=== PATIENT | male | born 1950 | race African-American/Black ===

== ENCOUNTER 2016-08-27 09:17 | Inpatient (IN) | payer BC ==
--- NOTE | ~2016-08-27 | EKG ---
PATIENT: MILLI ORTIZ UNIT #: [id number] Ventricular Rate: 110 BPM Atrial Rate: 101 BPM QRS Duration: 86 ms Q-T Interval: 294 ms QTC Calculation(Bezet): 397 ms Calculated R Sparks: -13 degrees Calculated T Sparks: -4 degrees Diagnosis Line: Atrial fibrillation with rapid ventricular Diagnosis Line: response Diagnosis Line: Minimal voltage criteria for LVH, may be normal Diagnosis Line: variant Diagnosis Line: Nonspecific T wave abnormality Diagnosis Line: Abnormal ECG Diagnosis Line: When compared with ECG of 10-AUG-2016 22:01, Diagnosis Line: Questionable change in QRS axis Diagnosis Line: Nonspecific T wave abnormality has replaced Diagnosis Line: inverted T waves in Lateral leads Diagnosis Line: Confirmed by NASIR RAI MD ([id number]) on Diagnosis Line: 08/28/2016 10:40:05 PM INTERPRETING MD: BC
--- NOTE | ~2016-08-27 | HP ---
Unit #: [id number] #: [id number] Patient: MILLI ORTIZ JR [id number] [address] [place], [place] [address] [id number] E MR#: [id number] NAME: MILLI ORTIZ JR ROOM: Age: 66 Sex: M Admission Date: 08/27/2016 : 1950 Attending Physician: Juan Cardenas M.D. Referring Physician: No Primary Care Physician Primary Care Physician: No Primary Care Physician HISTORY AND PHYSICAL HISTORY OF PRESENT ILLNESS This is a 66-year-old white male who is known to Cardiology that has a history of nonischemic cardiomyopathy where he underwent AICD placement in 2013. He had a cardiac catheterization in 2013 which shows angiographically normal coronaries. His ejection fraction at that time was 10 to 15%. He is known to have paroxysmal atrial fibrillation and is on anticoagulation with Eliquis. The patient presents to the emergency room after AICD discharge, which he believes was four times. He states that he has been doing well without any symptoms of dyspnea, palpitations or dizziness. He has no complaint of chest pain. He has been out of his medications for at least three to four days. He has been consistently taking his Eliquis. He came to the emergency room for evaluation where he was found to be in atrial fibrillation with rapid ventricular response. He was treated with a Cardizem bolus. He has been hypertensive with blood pressure 160/120 mmHg. He is hypokalemic with potassium level of 3.1. Magnesium level low at 1.6. BNP 254. He has not followed up with Cardiology for more than a year. He has not his device checked. PAST MEDICAL HISTORY 1. Cardiac catheterization, 10/18/2013, showed angiographically normal coronaries. 2. 2D echocardiogram, 10/15/2013, showed an ejection fraction of 10 to 15% with moderate left atrial enlargement, mild to moderate mitral regurgitation, moderate to severe tricuspid regurgitation, and right ventricular systolic pressure of 40 to 50 mmHg. 3. Chronic systolic heart failure. 4. Nonischemic cardiomyopathy status post [employer] AICD, 11/29/2013. 5. Permanent atrial fibrillation on anticoagulation with Eliquis. 6. Hypertension. 7. Hypothyroidism. 8. Chronic kidney disease. 9. BPH. 10. ETOH abuse. 11. Nonsmoker. 12. Noncompliance. PAST SURGICAL HISTORY AICD implantation. SOCIAL HISTORY The patient works at [employer]. He has never smoked. He continues to drink alcohol most days of the week. He denies illicit drug use. Unit #: [id number] #: [id number] Patient: MILLI ORTIZ JR FAMILY HISTORY Negative for coronary artery disease. MEDICATIONS 1. Carvedilol 25 mg b.i.d. 2. Norvasc 10 mg daily. 3. Eliquis 5 mg b.i.d. 4. Furosemide 40 mg b.i.d. 5. Potassium chloride 20 mEq daily. 6. Lisinopril 30 mg daily. 7. Aspirin 81 mg daily. REVIEW OF SYSTEMS CONSTITUTIONAL: Negative for fever or chills. The patient reports no weight gain or weight loss. HEENT: No headache, hearing or vision changes, difficulty with swallowing. No dizziness. CARDIOVASCULAR: The patient has no symptoms of angina. The patient denies palpitations. No paroxysmal nocturnal dyspnea or orthopnea. The patient denies syncope or near syncope. The patient reports AICD discharge. RESPIRATORY: Negative for dyspnea, cough or hemoptysis. GASTROINTESTINAL: No abdominal pain, nausea or vomiting. No constipation or melena. EXTREMITIES: Positive for left lower extremity edema. PHYSICAL EXAMINATION GENERAL APPEARANCE: This is a pleasant, 66-year-old, middle-aged -[place] male who is in no acute distress. VITAL SIGNS: Blood pressure 160/120. Heart rate 89. Temperature 97.9. BMI 34. NEUROLOGIC: He is awake, alert and oriented without focal weaknesses. NECK: Trachea is midline. No thyromegaly or lymphadenopathy. No jugular venous distention. HEART: S1, S2. Heart sounds are normal. No murmurs. No rubs or clicks. Regular rate and rhythm. LUNGS: Clear to auscultation without rales, rhonchi or wheezes. ABDOMEN: Soft, nontender. Bowel sounds are present. EXTREMITIES: Trace left lower extremity edema. DIAGNOSTIC STUDIES LABORATORY: Glucose 115, BUN 19, creatinine 1.3, sodium 142, potassium 3.1, magnesium 1.6. BNP 254. CK MB 1.3. Troponin less than 0.05. White count 4.4, hemoglobin 14.0, hematocrit 42.5, platelet count 256. IMAGING: Chest x-ray shows no active disease. CARDIOVASCULAR: EKG: Atrial fibrillation with rapid ventricular response rate of 110 beats per minute with left axis deviation. IMPRESSION 1. AICD discharge. 2. Uncontrolled hypertension. 3. Permanent atrial fibrillation with rapid ventricular response. 4. Nonischemic cardiomyopathy. 5. Continue ETOH abuse. 6. Mild obesity. Unit #: [id number] #: [id number] Patient: MILLI ORTIZ JR 7. History of chronic kidney disease. 8. Hypokalemia. PLAN 1. We will control the heart rate with IV beta blockers. 2. Restart on a beta sofie. 3. Continue Eliquis for anticoagulation. 4. We will try Entresto for afterload reduction in a patient with cardiomyopathy. 5. TSH will be checked. 6. Electrolytes will be replaced. 7. Interrogation shows that the patient had eight DC shocks today most likely from atrial fibrillation with rapid ventricular response. 8. Discharge in the a.m. if stable. Dictated by Gokul Hooks A.P.R.N. for Lupe Pena/issa TD: 08/27/2016 13:34 JOB #: [id number] HISTORY AND PHYSICAL X Gokul Hooks APRN HISTORY AND PHYSICAL
--- NOTE | ~2016-08-27 | CR72 ---
[facility] A Service of [facility] & [facility] RADIOLOGY TEXT RESULTS PATIENT: MILLI ORTIZ JR [facility] [birth year] UNIT #: [id number] AGE: [address]: Duane Mari MD SEX: M ORDER DR: [id number] [facility] [address]. [place], [place] [address] [id number] E MR#: [id number] Acc #: [id number] NAME: MILLI ORTIZ JR : 1950 SEX: M STUDY DATE/TIME: 08/27/2016 8:49 [facility]IT: [facility] ROOM: STUDY DESCRIPTION: CR Chest Single View Portable Attending Physician: Juan Cardenas M.D. Referring Physician: Primary Care Physician No Ordering Physician: Juan Cardenas M.D. Primary Care Physician: Primary Care Physician No MEDICAL IMAGING REPORT This report is preliminary unless electronic signature is present EXAM AP portable chest 08/27/2016 HISTORY 66-year-old male in the ED complaining of new onset chest pain today. TECHNIQUE AP portable chest x-ray. FINDINGS No active disease in the chest. Mild cardiomegaly. Pulmonary vascularity is normal. The lungs are expanded and clear. Well-positioned cardiac pacer/AICD. No change since 08/10/2016. IMPRESSION No active disease. No change since 08/10/2016. Dictated by... Khadar Caro M.D. THIS IS AN ELECTRONICALLY VERIFIED REPORT Khadar Caro M.D. at 08/27/2016 3:01 PM SAI/shayla TD: 08/27/2016 12:16 JOB #: [id number] MEDICAL IMAGING REPORT COPY
[~2016-08-27 09:17] MED LIST: ACETAMINOPHEN650 M1 PO; ALDACTONE25 MG PO; AMLODIPINE BESY10 MG PO; ASPIRIN81 M2 PO; BENZONATATE PO; BUMETANIDE1 MG PO; CARVEDILOL25 MG PO; CARVEDILOL6.25 MG PO; CLONIDINE HCL0.1 MG PO; COLCHICINE PO; COREG PO; ELIQUIS5 MG PO; FLOMAX0.4 M1 PO; FUROSEMIDE40 MG PO; K-DUR20 ME1 PO; K-DUR20 ME2 PO; KCL PO; KLOR-CON PO; LASIX PO; LASIX20 MG PO; LEVOTHYROXINE50 MCG PO; LISINOPRIL20 MG PO; LIVALO2 MG PO; LOTREL 10/40 MG1 CAP PO; MULTI-VITAMIN1 EAC1 PO; NAPROSYN500 MG PO; NORVASC10 MG PO; OXYCODONE-ACET1 EACH PO; POTASSIUM CHLO20 ME1 PO; PRINIVIL40 MG PO; TENORETIC 50 TA1 TAB PO; TOPROL XL100 MG PO; VENTOLIN5 MG/ML IH; ZESTRIL30 MG PO; ZESTRIL40 MG PO; ZYLOPRIM PO
[2016-08-27 09:31] LABS: BASOPHIL# 0.1 X10e3 (0-0.3); BASOPHIL% 2.9 % (0-2.5); EOSINOPHIL# 0.4 X10e3 (0-0.7); EOSINOPHIL% 8.4 % (0.0-7.0); HEMATOCRIT 42.5 % (38.0-50.0); LYMPHOCYTE# 1.1 X10e3 (1.0-3.5); LYMPHOCYTE% 24.8 % (17.0-45.0); MEAN CELL VOLUME 87.6 FL (83-96); MEAN CORPUSCULAR HEMOGLOBIN 28.9 PG (28-34); MEAN PLATELET VOLUME 8.7 FL (6.5-11.5); MONOCYTE# 0.4 X10e3 (0-1.0); MONOCYTE% 9.3 % (3.0-12.0); NEUTROPHIL# 2.4 X10e3 (1.5-7.1); NEUTROPHIL% 54.6 % (40-75); PLATELET COUNT 257 X10e3 (140-420); RED BLOOD COUNT 4.85 X10e (3.90-5.60); RED CELL DISTRIBUTION WIDTH 14.4 % (11.0-15.5); WHITE BLOOD COUNT 4.4 X10e3 (4.0-10.5)
[2016-08-27 09:32] LABS: POC - CKMB 1.3 ng/mL (0.0-7.9); POC - TROPONIN <0.05 ng/mL (<=0.05)
[2016-08-27 09:33] LABS: DIFF IND NO
[2016-08-27 09:49] LABS: INR 1.1; PARTIAL THROMBOPLASTIN TIME 26.6 SECONDS (23.5-31.3); PROTHROMBIN TIME (PATIENT) 11.2 SECONDS (9.6-11.5)
[2016-08-27 10:21] LABS: ALKALINE PHOSPHATASE 102 U/L (32-92); ALT (SGPT) 20 U/L (10-40); AST (SGOT) 18 U/L (10-42); BILIRUBIN, DIRECT 0.1 mg/dL (0.0-0.2); BILIRUBIN,INDIRECT 0.4 mg/dL (0.0-0.9); BILIRUBIN,TOTAL 0.5 mg/dL (0.2-2.0); BLOOD UREA NITROGEN 19 mg/dL (9-23); BUN/CREATININE RATIO 14.61; CALCIUM SERUM 8.9 mg/dL (8.4-10.2); CARBON DIOXIDE 28 mmol/L (22-31); CHLORIDE 103 mmol/L (100-111); CREATININE SERUM 1.3 mg/dL (0.6-1.4); GLOM FILT RATE Estimated ABOVE60 mL/min (>60); GLUCOSE FASTING 115 mg/dL (70-110); MAGNESIUM 1.6 mg/dL (1.6-3.0); POTASSIUM 3.1 mmol/L (3.5-5.1); PROTEIN TOTAL SERUM 7.8 g/dL (6.0-8.3); SODIUM 142 mmol/L (135-145)
[2016-08-28 06:14] LABS: BLOOD UREA NITROGEN 16 mg/dL (9-23); BUN/CREATININE RATIO 14.54; CARBON DIOXIDE 28 mmol/L (22-31); CHLORIDE 105 mmol/L (100-111); CREATININE SERUM 1.1 mg/dL (0.6-1.4); GLOM FILT RATE Estimated ABOVE60 mL/min (>60); GLUCOSE FASTING 112 mg/dL (70-110); POTASSIUM 3.3 mmol/L (3.5-5.1); SODIUM 143 mmol/L (135-145)
[2016-08-29 08:30] LABS: BLOOD UREA NITROGEN 25 mg/dL (9-23); BUN/CREATININE RATIO 17.85; CALCIUM SERUM 9.1 mg/dL (8.4-10.2); CARBON DIOXIDE 28 mmol/L (22-31); CHLORIDE 106 mmol/L (100-111); CREATININE SERUM 1.4 mg/dL (0.6-1.4); GLOM FILT RATE Estimated ABOVE60 mL/min (>60); GLUCOSE FASTING 115 mg/dL (70-110); MAGNESIUM 1.9 mg/dL (1.6-3.0); POTASSIUM 4.3 mmol/L (3.5-5.1); SODIUM 143 mmol/L (135-145)
[2016-08-29] MEDS ORDERED: COREG PO (09:49)
[2016-08-29] MEDS ORDERED: ENTRESTO 24 MG1 EACH PO (09:50)
== END 2016-08-29 13:58 | disposition home or self-care (01) | DRG 309 ==
LOC: CED 09:17 → CEDOF 12:25 → C5B 15:12
PROVIDERS: Emergency Medicine; Internal Medicine Cardiovascular Disease; Nurse Practitioner
DX: I49.9 Cardiac arrhythmia, unspecified (principal); I50.22 Chronic systolic (congestive) heart failure; E66.01 Morbid (severe) obesity due to excess calories; I12.9 Hypertensive chronic kidney disease with stage 1 through stage 4 chronic kidney disease, or unspecified chronic kidney disease; I48.2 Chronic atrial fibrillation; F10.10 Alcohol abuse, uncomplicated; N18.9 Chronic kidney disease, unspecified; E87.6 Hypokalemia; E03.9 Hypothyroidism, unspecified; N40.0 Benign prostatic hyperplasia without lower urinary tract symptoms; Z68.34 Body mass index [BMI] 34.0-34.9, adult
CPT/HCPCS: 36415; 71010; 80048; 80076; 80162; 82553; 83735; 83880; 84443; 84484; 85025; 85610; 85730; 93005; 96374; 99285; J0360; J1160; J3475; J3490

== ENCOUNTER 2016-09-12 13:18 | Emergency (ER) | payer BC ==
--- NOTE | ~2016-09-12 | US84 ---
[id number] [facility] [address]. [place], [place] [address] [id number] E MR#: [id number] Acc #: [id number] NAME: MILLI ORTIZ JR : 1950 SEX: M STUDY DATE/TIME: 09/12/2016 13:54 UNIT: [facility] ROOM: STUDY DESCRIPTION: US LE Veins Complete Beck Stdy Attending Physician: Josi Swenson Pa-C Ordering Physician: Josi Swenson Pa-C Primary Care Physician: Primary Care Physician No MEDICAL IMAGING REPORT This report is preliminary unless electronic signature is present EXAM Bilateral lower extremity venous duplex, 09/12/2016 HISTORY Bilateral lower extremity pain and swelling for 3 days, evaluate for deep vein thrombosis. TECHNIQUE Venous ultrasound examination of both lower extremities was performed using grayscale, spectral Doppler and color flow Doppler imaging. FINDINGS The examination is negative. There is no evidence of deep venous thrombus from the groin to the lower calf bilaterally. Visualized greater saphenous veins are also patent. IMPRESSION Negative examination. No evidence of lower extremity deep venous thrombosis. Dictated by... Randal Valdez M.D. THIS IS AN ELECTRONICALLY VERIFIED REPORT Randal Valdez M.D. at 09/13/2016 8:00 AM CHILANGO/cecelia TD: 09/12/2016 21:22 JOB #: [id number] MEDICAL IMAGING REPORT COPY
--- NOTE | ~2016-09-12 | CR170 ---
[facility] A Service of [facility] & [facility] RADIOLOGY TEXT RESULTS PATIENT: MILLI ORTIZ JR LOCATION: [facility] : 54 UNIT #: [id number] AGE: [address]: Josi Swenson SEX: M ORDER DR: [id number] [facility] [address] [facility]. [place], [place] [address] [id number] E MR#: [id number] Acc #: [id number] NAME: MILLI ORTIZ JR : 1950 SEX: M STUDY DATE/TIME: 09/12/2016 14:07 UNIT: [facility] ROOM: STUDY DESCRIPTION: CR Knee 2 Views Rt Attending Physician: Josi Swenson Pa-C Ordering Physician: Josi Swenson Pa-C Primary Care Physician: No Primary Care Physician MEDICAL IMAGING REPORT This report is preliminary unless electronic signature is present EXAM Right knee 2 views 09/12/2016 HISTORY Pain and swelling in knee for 4 days. No known injury. FINDINGS There is suprapatellar soft tissue swelling but no fracture, foreign body or bone destruction. Dictated by... José Miguel Vargas M.D. THIS IS AN ELECTRONICALLY VERIFIED REPORT José Miguel Vargas M.D. at 09/15/2016 3:48 PM JONATHON/darcie TD: 09/12/2016 17:46 JOB #: [id number] MEDICAL IMAGING REPORT COPY
--- NOTE | ~2016-09-12 | CR20 ---
[facility] A Service of [facility] & [facility] RADIOLOGY TEXT RESULTS PATIENT: MILLI ORTIZ JR LOCATION: [facility] : 54 UNIT #: [id number] AGE: [address]: Josi Swenson SEX: M ORDER DR: [id number] [facility] [address]. [place], [place] [address] [id number] E MR#: [id number] Acc #: [id number] NAME: MILLI ORTIZ JR : 1950 SEX: M STUDY DATE/TIME: 09/12/2016 1407 UNIT: [facility] ROOM: STUDY DESCRIPTION: CR Ankle Min 3 Views Lt Attending Physician: Josi Swenson Pa-C Ordering Physician: Josi Swenson Pa-C Primary Care Physician: No Primary Care Physician MEDICAL IMAGING REPORT This report is preliminary unless electronic signature is present EXAM Left ankle 3 views 09/12/2016 1407 hours HISTORY 66-year-old man with 4-day history of ankle pain and swelling. Pain in knee. No known injury. COMPARISON None. FINDINGS AP, lateral and oblique views demonstrate diffuse soft tissue swelling and subcutaneous edema over the lower leg and ankle. There is no fracture, dislocation or significant degenerative change. There is a very small plantar calcaneal spur. IMPRESSION Diffuse subcutaneous edema and soft tissue swelling without underlying bone or joint abnormality. No fracture. Dictated by... Elizabeth Null M.D. THIS IS AN ELECTRONICALLY VERIFIED REPORT Elizabeth Null M.D. at 09/13/2016 9:25 AM Anahy TD: 09/12/2016 16:36 JOB #: [id number] MEDICAL IMAGING REPORT COPY
[~2016-09-12 13:18] MED LIST changes: +ENTRESTO 24 MG1 EACH PO
== END 2016-09-12 16:09 | disposition home or self-care (01) ==
LOC: CFTX 13:18
DX: M25.561 Pain in right knee (principal); M79.672 Pain in left foot; I11.0 Hypertensive heart disease with heart failure; I50.9 Heart failure, unspecified
CPT/HCPCS: 73560; 73610; 93970; 99284

== ENCOUNTER 2016-11-25 10:03 | Inpatient (IN) | payer BC ==
--- NOTE | ~2016-11-25 | CR72 ---
[facility] A Service of [facility] & [facility] RADIOLOGY TEXT RESULTS PATIENT: MILLI ORTIZ JR LOCATION: [address] : [birth year] UNIT #: [id number] AGE: [address]: Chari Duarte MD SEX: M ORDER DR: [id number] [facility] [address] [place], [place] [address] [id number] I MR#: [id number] Acc #: [id number] NAME: MILLI ORTIZ : 1950 SEX: M STUDY DATE/TIME: 12/03/2016 6:30 [facility]: [facility] STUDY DESCRIPTION: CR Chest Single View Portable Attending Physician: Chari Duarte M.D. Ordering Physician: Chari Duarte M.D. MEDICAL IMAGING REPORT This report is preliminary unless electronic signature is present EXAM Portable chest HISTORY Shortness of air. Low oxygen saturation today. COMPARISON STUDIES 12/02. FINDINGS Today's portable view of the chest shows that the central venous catheter and pacemaker are in good position. The heart size and vascularity are normal. There is mild left lower lobe atelectasis. Dictated by... Scott Sorto M.D. THIS IS AN ELECTRONICALLY VERIFIED REPORT Scott Sorto M.D. at 12/04/2016 7:02 AM FEL/pcl TD: 12/03/2016 14:57 JOB #: [id number] MEDICAL IMAGING REPORT Page 1 of 1 COPY
--- NOTE | ~2016-11-25 | HP ---
Unit #: [id number] #: [id number] Patient: MILLI ORTIZ JR [id number] [facility] [address]. [place], [place] [address] [id number] E MR#: [id number] NAME: MILLI ORTIZ ROOM: Age: 66 Sex: M Admission Date: 11/25/2016 : 1950 Attending Physician: Bushra Skinner M.D. Primary Care Physician: Monica Lee Aprn HISTORY AND PHYSICAL CHIEF COMPLAINT Left arm is swollen. HISTORY OF PRESENT ILLNESS The patient is a 66-year-old male with a past medical history of paroxysmal atrial fibrillation, chronic anticoagulation with Eliquis, hypertension, congestive heart failure, valvular heart disease, chronic kidney disease, BPH, hypothyroidism and alcohol abuse. He presented to the emergency department for evaluation of the above. The patient states that he was in his usual state of health until the morning of admission, when he awoke with his left upper extremity being swollen. He states that it is somewhat painful with movement. He denies any similar problem. He denies any fever. No chest pain. No difficulty breathing. No cough or cold symptoms. No bowel or bladder problems. In the emergency department a left upper extremity venous Doppler was done and showed occlusive DVT involving the left subclavian and axillary veins. He is being admitted to [facility] for evaluation and further treatment. PAST MEDICAL HISTORY 1. Admission to [facility] 08/27/2016 for AICD discharge and atrial fibrillation with rapid ventricular response. 2. Congestive heart failure. Followed by Dr. Mari. The patient had an echocardiogram 10/15/2013 that showed an ejection fraction of 10%-15%, with moderate left atrial enlargement, mild to moderate mitral regurgitation, moderate to severe tricuspid regurgitation, right ventricular systolic pressure of 40-50 mmHg. He is status post AICD placement. 3. Paroxysmal atrial fibrillation on chronic anticoagulation with Eliquis. 4. Valvular heart disease with echocardiogram results as noted above. 5. Hypertension. 6. Hypothyroidism. 7. Chronic kidney disease. The patient has seen Dr. Albarran in the past. 8. BPH. PAST SURGICAL HISTORY 1. Cardiac catheterization 10/18/2013 showed angiographically normal coronary arteries. 2. AICD placement. SOCIAL HISTORY Unit #: [id number] #: [id number] Patient: MILLI ORTIZ JR The patient works at [employer]. There is no tobacco use. He has a history of heavy alcohol use, but states that he has cut back considerably with his last drink being about a week ago, consisting of one to two beers. He denies tobacco or illicit drug use. FAMILY HISTORY Notable for there being no family history of coronary artery disease nor blood clots. ALLERGIES No known drug allergies. HOME MEDICATIONS 1. Potassium 20 mEq b.i.d. 2. Coreg 25 mg b.i.d. 3. Prinivil 40 mg daily. 4. Aspirin 81 mg daily. 5. Eliquis 5 mg b.i.d. 6. Furosemide 40 mg b.i.d. 7. Amlodipine 10 mg daily. 8. Entresto 24/26 mg b.i.d. REVIEW OF SYSTEMS A complete review of systems is negative except as indicated in the history of present illness. PHYSICAL EXAMINATION GENERAL: The patient is an male who is very pleasant, in no acute distress. VITALS: Temperature 98.6, pulse 69, respiratory rate 17, blood pressure 107/82, oxygen saturation 100% on room air. HEENT: The head is atraumatic. Mucous membranes are moist. NECK: Supple. Trachea midline. LUNGS: Relatively clear to auscultation bilaterally with no increased work of breathing. HEART: Irregular. ABDOMEN: Soft and nontender with bowel sounds present in all four quadrants. EXTREMITIES: The left upper extremity is edematous. He does have decreased range of motion secondary to pain. He has a 2+ radial pulse. Sensation is intact. There is no pedal edema. NEUROLOGIC: The patient is awake and alert. He follows commands. PSYCHIATRIC: Mood and affect are normal. The patient is cooperative. SKIN: Skin of examined areas is warm and dry. DIAGNOSTIC STUDIES IMAGING: Left upper extremity venous Doppler shows an occlusive DVT involving the left subclavian and axillary veins. INR is 1.4. CMP is notable for AST 64 and ALT 83. Alkaline phosphatase 381. Albumin 3.3. CBC notable for white blood cell count of 19.6. Hemoglobin 11.2, hematocrit 35.6. ASSESSMENT The patient is a 66-year-old male with 1. Left upper extremity DVT. The patient is currently on Eliquis for paroxysmal atrial fibrillation. He has been taking it as prescribed, with the last dose being this morning around 7 o'clock. Unit #: [id number] #: [id number] Patient: MILLI ORTIZ JR 2. Chronic anticoagulation with Eliquis. 3. Paroxysmal atrial fibrillation. Followed by Dr. Mari. 4. Hypertension. 5. Leukocytosis with no obvious source of infection. 6. Transaminitis with AST and ALT of 64 and 83 respectively. Alkaline phosphatase is 381. LFTs have previously been normal. 7. Congestive heart failure with an ejection fraction of 10%-15% noted on echocardiogram 10/15/2013. 8. Valvular heart disease with echocardiogram results as noted above. 9. Chronic kidney disease. The patient has seen Dr. Albarran in the past. 10. BPH. 11. Hypothyroidism. 12. History of heavy alcohol use. The patient states that he has cut back considerably with his last drink being a week ago, consisting of 1-2 beers. PLAN 1. Admit to intermediate level. 2. 2 g sodium 1800 cc fluid restricted heart healthy diet. 3. High intensity heparin drip per protocol for DVT, to start at 5 p.m. with no initial bolus due to the patient taking Eliquis this morning. 4. Consult Dr. Escalona regarding DVT on Eliquis. 5. Supplemental oxygen. 6. Check EKG and cardiac enzymes. 7. TSH. 8. Folic acid, thiamine and multivitamin. 9. CIWA scoring. 10. Right upper quadrant ultrasound, hepatitis panel for further evaluation of transaminitis. 11. Blood cultures, urinalysis and chest x-ray for further evaluation of leukocytosis. 12. Additional workup and consultants based on the above. CODE STATUS The patient is a full code. Dictated by Fabiana Sheffield M.D. Sree TD: 11/25/2016 13:34 JOB #: [id number] HISTORY AND PHYSICAL Page 1 of 1 X Fabiana Sheffield MD X HISTORY AND PHYSICAL
--- NOTE | ~2016-11-25 | EKG ---
PATIENT: MILLI ORTIZ UNIT #: [id number] Ventricular Rate: 87 BPM Atrial Rate: 267 BPM QRS Duration: 90 ms Q-T Interval: 360 ms QTC Calculation(Bezet): 433 ms Calculated R Oxford: -2 degrees Calculated T Oxford: -32 degrees Diagnosis Line: Atrial fibrillation Diagnosis Line: Nonspecific T wave abnormality Diagnosis Line: Abnormal ECG Diagnosis Line: When compared with ECG of 27-AUG-2016 08:23, Diagnosis Line: No significant change was found Diagnosis Line: Confirmed by AKASH JONES MD ([id number]) on Diagnosis Line: 11/29/2016 3:11:38 PM INTERPRETING MD: KAREN KOTHARI
--- NOTE | ~2016-11-25 | US6 ---
[facility] A Service [facility] RADIOLOGY TEXT RESULTS PATIENT: MILLI ORTIZ JR LOCATION: [place] [address] : [birth year] UNIT #: [id number] AGE: [address]: Fabiana Sheffield MD SEX: M ORDER DR: [id number] [facility] [address] [facility] [place] [facility]. [place], [place] [address] [id number] I MR#: [id number] Acc #: [id number] NAME: MILLI ORTIZ JR : 1950 SEX: M STUDY DATE/TIME: 11/25/2016 14:03 UNIT: [facility] ROOM: [id number] STUDY DESCRIPTION: US Abdominal Limited Attending Physician: Fabiana Sheffield M.D. Ordering Physician: Fabiana Sheffield M.D. Primary Care Physician: Monica Lee R.N. MEDICAL IMAGING REPORT This report is preliminary unless electronic signature is present EXAM Right upper quadrant ultrasound HISTORY Elevated liver enzymes. FINDINGS Ultrasound examination of the upper quadrant demonstrates diffusely heterogeneous hepatic parenchymal echotexture, with multiple hypoechoic rounded and ill-defined masses throughout the liver. CT abdomen with IV contrast is recommended. Gallbladder is normal. No gallstones or gallbladder distension. No biliary dilatation. The common bile duct measures 6 mm. Survey of the right kidney is normal. No right renal mass or hydronephrosis. The pancreas is only partly visualized in the body and the head and tail are incompletely visualized. IMPRESSION Diffusely heterogeneous hepatic parenchymal echotexture with multiple hypoechoic round and ill-defined hepatic masses. These raise suspicion of hepatic metastatic disease. Recommend further evaluation with CT abdomen with IV contrast. Dictated by... Emerson Mg M.D. THIS IS AN ELECTRONICALLY VERIFIED REPORT Emerson Mg M.D. at 11/25/2016 10:38 PM SANTIAGO/darcie TD: 11/25/2016 17:34 JOB #: [id number] MEDICAL IMAGING REPORT [facility] A Service [facility] RADIOLOGY TEXT RESULTS PATIENT: MILLI ORTIZ JR LOCATION: [facility] 450-01 : [birth year] UNIT #: [id number] AGE: [address]: Fabiana Sheffield MD SEX: M ORDER DR: Page 1 of 1 COPY
--- NOTE | ~2016-11-25 | CO ---
Unit #: [id number] #: [id number] Patient: MILLI ORTIZ JR [id number] [address] [place], [place] [address] [id number] I MR#: [id number] NAME: MILLI ORTIZ JR ROOM: 558 Age: 66 Sex: M Admission Date: 11/25/2016 : 1950 Attending Physician: Chari Duarte M.D. Primary Care Physician: Monica Lee Consultation Date: 11/29/2016 CONSULTATION REPORT CHIEF COMPLAINT Colon mass. HISTORY OF PRESENT ILLNESS This is a 66-year-old -Irish gentleman who we were asked to see for colon mass and multiple liver masses. He came into the hospital for some left upper extremity swelling and was also having some mild abdominal pain that started approximately a week ago. He says it is worse at night. He denies any nausea, vomiting or change in bowel habits. He has not undergone prior endoscopy. PAST MEDICAL HISTORY Significant for: 1. Atrial fibrillation. 2. Hypertension. 3. Valve disease. 4. Chronic kidney disease. 5. BPH. 6. Hypothyroidism. PAST SURGICAL HISTORY He has had an AICD placed. He has had no abdominal surgeries. MEDICATIONS Please see Med Rec list. He was taking Eliquis. FAMILY HISTORY Negative for cancer. SOCIAL HISTORY Negative for tobacco use. He has a history of heavy alcohol use and recently stopped a week ago. REVIEW OF SYSTEMS Negative for jaundice, weight loss or change in bowel habits. He denies any current shortness of air or chest pain. Otherwise as above. PHYSICAL EXAMINATION VITAL SIGNS: Temperature is 99.5, heart rate is 103, respiratory rate is 18, blood pressure is 133/67. His BMI is 30. GENERAL: He is in no acute distress. HEENT: Pupils are equal, reactive to light and accommodation. His extraocular muscles are intact. NECK: Without masses or bruits. Unit #: [id number] #: [id number] Patient: MILLI ORTIZ JR LUNGS: Good breath sounds bilaterally with equal air exchange. CARDIAC: Regular rate and rhythm without murmur. ABDOMEN: Soft, nondistended and nontender with no organomegaly. EXTREMITIES: Without edema or cyanosis. NEUROLOGICAL: He is alert and oriented. There are no focal deficits. DIAGNOSTIC STUDIES LABORATORY: Albumin is 2.8. CEA level is 86. Alkaline phos. is 362, white count is 22,000, hemoglobin 10.7, platelet count 220. IMAGING: CT scan shows numerous hepatic lesions, all measuring approximately 3 to 4 cm in diameter. This is consistent with metastatic disease. He also is noted to have colonic thickening of the transverse colon suspicious for primary cancer. IMPRESSION This is a 66-year-old -Irish gentleman who has some colonic thickening and multiple hepatic masses concerning for metastatic colon cancer. He underwent percutaneous liver biopsy today and certainly needs to undergo colonoscopy. Will go ahead and prep out his bowel today and hold his heparin drip at midnight and get him set up for colonoscopy tomorrow. Dictated by... Chauncey Miller III, M.D. VCL/matthew TD: 11/30/2016 07:34 JOB #: [id number] CONSULTATION REPORT Page 1 of 1 X Chauncey Miller III, MD CONSULTATION REPORT
--- NOTE | ~2016-11-25 | DS ---
Unit #: [id number] #: [id number] Patient: MILLI ORTIZ JR [id number] [facility]. [address] [address] [id number] I MR#: [id number] NAME: MILLI ORTIZ JR ROOM: 312 Age: 66 Sex: M Admission Date: 11/25/2016 : 1950 Discharge Date: 12/13/2016 Attending Physician: Chari Duarte M.D. Primary Care Physician: Monica Lee Aprn DISCHARGE SUMMARY ADMISSION DIAGNOSIS Left arm swelling. DISCHARGE DIAGNOSES 1. Metastatic cholangiocarcinoma with colon mass. 2. Colon mass, status post hemicolectomy. 3. Acute kidney injury. 4. Left upper extremity DVT. 5. Leukocytosis. 6. Congestive heart failure. 7. Paroxysmal atrial fibrillation. 8. Anemia. 9. History of alcohol abuse. 10. History of chronic systolic congestive heart failure, ejection fraction 10%-15%. 11. Valvular heart disease. 12. Hyperthyroidism. 13. BPH. 14. Valvular heart disease with moderate to severe tricuspid regurgitation and mild to moderate mitral regurgitation. CONSULTANTS Dr. Vega in pulmonary consultation. Dr. Keith in surgical consultation Dr. aMri in cardiac consultation Dr. Albarran in renal consultation. PROCEDURES PERFORMED 1. The patient had a colonoscopy done, which revealed obstructing colon mass at the transverse colon. 2. Exploratory laparotomy done with left colectomy and anastomosis. DIAGNOSTIC DATA LABORATORY: Today the patient's creatinine is 3.4, sodium 132, potassium 4.7. White blood cell count 25.2, hemoglobin 7.2, platelet count 277. HOSPITAL COURSE The patient is a 66-year-old male who was admitted to the hospital with left upper extremity swelling. Details are as per admission history and physical. The patient was diagnosed with liver masses and had a liver biopsy done, which was positive for malignancy. Also a colonoscopy was done, which revealed transverse colon mass. The patient underwent partial colectomy with anastomosis. The patient's condition deteriorated and he developed acute respiratory failure and was transferred to the intensive care unit. The patient was seen by Dr. Vega in consultation. Unit #: [id number] #: [id number] Patient: MILLI ORTIZ JR The patient also developed acute kidney injury and required hemodialysis. The patient also developed atrial fibrillation and cardiology saw the patient in consultation. The patient's overall condition gradually improved, but oncology recommended Hospice care because of the patient's advanced cancer. The patient continued to have leukocytosis, but it is attributed to cancer because the patient is not having any fever. The patient was seen by Hospice who discussed with the patient's family and it was decided to have comfort care only. The patient will be transferred to Hospice inpatient unit. Please make note that I have discussed the patient's condition multiple times with the patient's son Ladan and the patient's daughter Osiris, the patient's mother and girlfriend and all also with the patient. They od not want any aggressive care. The patient will be transferred to Hospice inpatient unit. DISPOSITION Hospice inpatient unit. Please feel free to call if there are any questions The plan has been discussed with Hospice as well. Dictated by... Lupe Gabriel TD: 12/14/2016 14:05 JOB #: [id number] DISCHARGE SUMMARY Page 1 of 1 X Chari Duarte MD X DISCHARGE SUMMARY
--- NOTE | ~2016-11-25 | A ---
[facility] Nutrition Therapy DATE: 12/05/16 Patient: MILLI ORTIZJR Physician: NEIL Address: [address] [place] [address] Room/Bed: [address], Zip: [place] [address] Admit Date: 11/25/16 Date of : [birth year] Height: 6 0 Weight: 211 95.8 NUTRITIONAL ASSESSMENT: REASON: LOS ASSESSMENT PT IS 66 Y.O. MALE ADMITTED FOR LUE DVT, STAGE IV COLON CA W/METS TO LIVER AND LUNG, YG PMH: HTN, AFIB, CHF, ETOH ABUSE, HYPOTHYROIDISM Anthropometrics: 6'0", WT: 220# (PER PT) (100 KG), BMI: 29.8 Labs: GLU: 131, BUN: 57, CREAT: 3.7, CA+:7.5, ALB: 2.6, AST: 65, ALT: 121, PHOS: 6.3, GFR: 18.9, NA+:133 Meds: ZOFRAN, PHENERGAN, PROTONIX, NACL I/O & Bowel function: 1788/530 Skin Integrity: NO KNOWN SKIN ISSUES EDEMA: LUE 2+ EDEMA; BUE TRACE EDEMA Assessment: CHART REVIEWED AND EVENTS NOTED. PT SEEN FOR LENGTH OF STAY ASSESSMENT. PT REPORTS FAIR/GOOD PO INTAKE AND APPETITE, NOTING NO C/O N/V/D. PER IPM [place], PT ATE ~100% CLEAR LIQUID DIET TRAYS AT THIS TIME (ONLY 6 MEALS RECORDED). PT ON FULL LIQUID DIET. OF NOTE, PLANS IN PLACE FOR HD AND PT IS S/P POD #4 (L) COLECTOMY. PT REPORTS SOME WEIGHT LOSS BUT UNABLE TO IDENTIFY AMOUNT OF WEIGHT LOSS. THIS RD ENCOURAGED SLOW GRADUAL PO INTAKE + SUPPLEMENT INTAKE, PT AGREED TO NEPRO SHAKES BID, RD TO ORDER. RD TO FOLLOW. SEE RECOMMENDATIONS BELOW. Dx: ALTERED NUTRIENT NEEDS R/T CURRENT CONDITION AEB PT ON FULL LIQUID DIET. Intervention: 1. FULL LIQUID DIET 2. NEPRO SHAKES BID Monitoring, Evaluation and Goals: 1. ORAL INTAKE; CONSUME >50% OF MEALS AND SUPPLEMENTS W/NO C/O N/V/D 2. WEIGHTS; PROMOTE WEIGHT MAINTENANCE 3. LABS; WNL: K+, PHOS, GLU 4. GI; PROMOTE REGULAR GI FUNCTION MONITOR: -DIET ADVANCEMENT -PO INTAKE/APPETITE -WEIGHTS [facility] Nutrition Therapy DATE: 12/05/16 Patient: MILLI ORTIZ JR Physician: NEIL Address: [address] [place] [address] Room/Bed: [address], Zip: [place] [address] Admit Date: 11/25/16 Date of : [birth year] Height: 6 0 Weight: 211 95.8 -SUPPLEMENT INTAKE Recommendations: 1. PLEASE ORDER BUTTER PECAN NEPRO SHAKES BID W/MEALS 2. ONCE MEDICALLY FEASIBLE, ADVANCE DIET TOLERATED TO HEALTHY HEART 2' PMH 3. ENCOURAGE ADEQUATE PO INTAKE RD WILL F/U PER PROTOCOL PT IS MILD/MODERATELY COMPROMISED Respectfully, JASON VARGAS MS, RD, LD [employer] [facility] Nutrition[facility] Services [facility] cc: client file
--- NOTE | ~2016-11-25 | OR ---
Unit #: [id number] #: [id number] Patient: MILLI ORTIZ JR [id number] [address] [address] [id number] I MR#: [id number] NAME: MILLI ORTIZ ROOM: [facility] Date of Procedure: 12/02/2016 Admission Date: 11/25/2016 Surgeon: Ang Choi M.D. : 1950 Attending Physician: Chari Duarte M.D. Primary Care Physician: Monica Lee Aprn PROCEDURE OPERATIVE NOTE PREOPERATIVE DIAGNOSIS Colon cancer and congestive heart failure with hyperkalemia. PROCEDURE PERFORMED Right internal jugular hemodialysis catheter placement with ultrasound guidance. INDICATION FOR PROCEDURE Hyperkalemia. Critical. COMPLICATIONS None. PROCEDURE An informed consent was obtained from the patient after explaining the benefits and risks of this procedure. The patient's right neck was cleaned and prepped with chlorhexidine then a body drape was applied. When with the ultrasound guidance a needle was inserted until blood flow was obtained, then a guidewire was inserted and the needle was removed. A scalpel was used to create a cut in the skin and then a dilator to clear the tract for the catheter which was inserted over the guidewire and the guidewire was removed. The catheter was sutured in place and flushed appropriately. A Biopatch and clean dressing were applied and a STAT chest x-ray is pending at the time of dictation. Dictated by... Ang Choi M.D. EA/kalpana TD: 12/03/2016 06:44 JOB #: [id number] Unit #: [id number] #: [id number] Patient: MILLI ORTIZ JR PROCEDURE OPERATIVE NOTE Page 1 of 1 X ANG LONG MD X PROCEDURE OPERATIVE NOTE
--- NOTE | ~2016-11-25 | CO ---
Unit #: [id number] #: [id number] Patient: MILLI ORTIZ JR [id number] [facility]. [address] [place], [place] [address] [id number] I MR#: [id number] NAME: MILLI ORTIZ JR ROOM: 450 Age: 66 Sex: M Admission Date: 11/25/2016 : 1950 Attending Physician: Chari Duarte M.D. Primary Care Physician: Monica Lee Aprn CONSULTATION REPORT REASON FOR CONSULTATION Atrial fibrillation. HISTORY OF PRESENT ILLNESS This is a 66-year-old male, who is known to our group, who has a history of chronic systolic heart failure, hypertension, and nonischemic cardiomyopathy where he has an AICD implanted. He is known to have permanent atrial fibrillation and has been on anticoagulation with Eliquis. Cardiac catheterization in 2013 found him to have angiographically normal coronaries. The patient is admitted with a complaint of left upper extremity swelling. He states he woke up with his arm in that condition. Ultrasound of the left upper extremities found him to have an occlusive deep vein thrombosis in the left subclavian and axillary veins. He was taking Eliquis consistently. He was started on heparin drip and Eliquis was discontinued. In the emergency room on EKG, found the patient to be in atrial fibrillation with rapid ventricular response with a rate of 115 beats per minute. His heart rate is currently well controlled. There was elevation of his LFTs. The patient has a history of alcohol abuse in the past, but states he now only drinks occasionally. Because of elevated LFTs, ultrasound of the abdomen was done revealing multiple hepatic masses that raised suspicion for hepatic metastatic disease. From a cardiac standpoint, the patient has no symptoms of angina. He denies palpitations. Has some shortness of breath that occurs on exertion, but denies paroxysmal nocturnal dyspnea, orthopnea, or leg edema. He was taking both lisinopril and Entresto at home. PAST MEDICAL HISTORY 1. Cardiac catheterization on 10/18/2013 shows angiographically normal coronaries. 2. A 2D echocardiogram on 10/15/2013 shows ejection fraction of 10% to 15% with moderate left atrial enlargement, [id number] mitral regurgitation, gywaywjo-fe-jzvwnj tricuspid regurgitation, right ventricular systolic pressure 40 to 50 mmHg. 3. Chronic systolic heart failure. 4. Permanent atrial fibrillation, on anticoagulation with Eliquis. 5. Nonischemic cardiomyopathy, status post AICD with [employer] device on 11/29/2013. 6. Hypertension. 7. Hypothyroidism. 8. Chronic kidney disease. 9. BPH. 10. Nonsmoker. Unit #: [id number] #: [id number] Patient: MILLI ORTIZ JR 11. History of heavy alcohol abuse. PAST SURGICAL HISTORY AICD implantation. SOCIAL HISTORY The patient works at [employer]. He has never smoked. Drinks alcohol heavily, but has cut back his alcohol use to 1 to 2 beers occasionally. No illicit drug use. FAMILY HISTORY Negative for coronary artery disease. ALLERGIES No known drug allergies. HOME MEDICATIONS 1. Potassium chloride 20 mEq b.i.d. 2. Carvedilol 25 mg b.i.d. 3. Prinivil 40 mg daily. 4. Aspirin 81 mg daily. 5. Eliquis 5 mg b.i.d. 6. Furosemide 20 mg b.i.d. 7. Amlodipine 10 mg daily. 8. Entresto 24/26 mg b.i.d. REVIEW OF SYSTEMS CONSTITUTIONAL: Negative for fever or chills. Has no weight gain or weight loss. HEENT: No headache, hearing or vision changes, or difficulty with swallowing. No dizziness. CARDIOVASCULAR: Has no symptoms of angina. Denies palpitations. No paroxysmal nocturnal dyspnea or orthopnea. No syncope or near syncope. RESPIRATORY: Has occasional dyspnea on exertion. No cough or hemoptysis. GASTROINTESTINAL: Negative for abdominal pain, nausea, or vomiting. No constipation. No melena. EXTREMITIES: Reports left upper extremity edema. PHYSICAL EXAMINATION VITAL SIGNS: Blood pressure 121/90, heart rate 79, and temperature 98.7. GENERAL: This is a pleasant well-developed 66-year-old white male, who is in no acute respiratory distress. NEUROLOGIC: He is awake, alert, and oriented. There are no focal weaknesses. NECK: Trachea is midline. No thyromegaly or lymphadenopathy. No jugular venous distention. HEART: S1 and S2. Heart sounds are normal. No murmurs, rubs, or clicks. Irregular regular rhythm. LUNGS: Clear without rales, rhonchi, or wheezing. ABDOMEN: Soft and nontender with bowel sounds are present. EXTREMITIES: With no leg edema. Left upper extremity positive for edema. SKIN: Warm and dry. DIAGNOSTIC STUDIES LABORATORY STUDIES: Sodium 136, potassium 4.0, BUN 17, and creatinine 1.1. AST 66, ALT 77, and alkaline phosphatase 362. Troponin 0.19. TSH 1.21. INR 1.4. White count 17.6, hemoglobin 10.5, hematocrit 32.4, and platelet count is 207. Unit #: [id number] #: [id number] Patient: MILLI ORTIZ IMAGING STUDIES: Chest x-ray shows no active disease, appears stable cardiac enlargement. Ultrasound of the abdomen reveals diffuse hepatic echotexture with multiple hypoechoic rim and ill-defined hepatic masses. These raised suspicion of hepatic metastatic disease. Ultrasound of the left upper extremities shows findings consistent with left subclavian and axillary veins deep vein thrombosis. CARDIOVASCULAR STUDIES: EKG; atrial fibrillation with rapid ventricular response with a rate of 115 beats per minute with low-voltage QRS. IMPRESSION 1. Left upper extremity deep vein thrombosis. 2. Permanent atrial fibrillation with rapid ventricular response converted to controlled ventricular rate. 3. Questionable metastatic liver disease. 4. Chronic systolic heart failure with reduced ejection fraction of 10% to 15%. 5. Nonischemic cardiomyopathy, status post automatic implantable cardioverter-defibrillator. 6. Hypertension. 7. Chronic kidney disease. 8. Normal coronaries per cardiac catheterization in 2013. PLAN 1. Cardiology was consulted for atrial fibrillation. The patient's rate was uncontrolled, but now it was in the controlled rate. We will increase carvedilol. 2. The patient was taken lisinopril and Entresto. Lisinopril will be discontinued and he will be continued on Entresto. 3. Amlodipine will also be discontinued. 4. Optimize heart failure medications. 5. Oncology consult for liver mass and left upper extremity deep vein thrombosis on Eliquis. 6. We will follow the patient with you. Thank you for allowing us to assist with this patient's care. Dictated by... Ingris Gee/lawrence TD: 11/28/2016 02:43 JOB #: [id number] CC: Tammy Campoverde M.D. Unit #: [id number] #: [id number] Patient: MILLI ORTIZ JR CONSULTATION REPORT Page 1 of 1 X Gokul Hooks APRN CONSULTATION REPORT
--- NOTE | ~2016-11-25 | EKG ---
PATIENT: MILLI ORTIZ UNIT #: [id number] Ventricular Rate: 88 BPM Atrial Rate: 88 BPM P-R Interval: 178 ms QRS Duration: 68 ms Q-T Interval: 304 ms QTC Calculation(Bezet): 367 ms P [place]: 31 degrees Calculated R [place]: -6 degrees Calculated T [place]: 145 degrees Diagnosis Line: Normal sinus rhythm Diagnosis Line: T wave abnormality, consider lateral ischemia Diagnosis Line: Abnormal ECG Diagnosis Line: When compared with ECG of 29-NOV-2016 00:18, Diagnosis Line: Sinus rhythm has replaced Atrial fibrillation Diagnosis Line: Nonspecific T wave abnormality, improved in Diagnosis Line: Inferior leads Diagnosis Line: T wave inversion more evident in Lateral leads Diagnosis Line: Confirmed by NASIR RAI MD ([id number]) on Diagnosis Line: 12/03/2016 1:43:51 PM INTERPRETING MD: BC
--- NOTE | ~2016-11-25 | CT55 ---
[facility] A Service of [facility] & [facility] RADIOLOGY TEXT RESULTS PATIENT: MILLI ORTIZ JR LOCATION: [facility] 450-01 : [birth year] UNIT #: [id number] AGE: [address]: Chari Duarte MD SEX: M ORDER DR: [id number] [facility] [address] [place], [place] [address] [id number] I MR#: [id number] Acc #: [id number] NAME: MILLI ORTIZ : 1950 SEX: M STUDY DATE/TIME: 11/26/2016 16:21 UNIT: [facility] ROOM: [facility] STUDY DESCRIPTION: CT Chest W Con Attending Physician: Chari Duarte M.D. Ordering Physician: Anoop Escalona M.D., Ph.D. Primary Care Physician: Monica Lee R.N. MEDICAL IMAGING REPORT This report is preliminary unless electronic signature is present EXAM Chest CT, 11/26. INDICATION Abnormal ultrasound, 11/25/16, demonstrating diffuse liver metastases. Patient reports shortness of air for 2 weeks. Evaluate for primary or metastatic disease in the chest. TECHNIQUE Axial images were obtained through the chest following IV contrast administration. Multiplanar reformats were obtained. This CT exam was performed with one or more of the following radiation dose reduction techniques: automatic exposure control, adjustment of mA and/or kV according to patient size, and iterative reconstruction. COMPARISON No comparison chest CT. FINDINGS There is cardiomegaly. There is no pleural or pericardial effusion. There is subcarinal adenopathy with a short axis diameter of 1.3 cm. There is some shotty right peritracheal lymph nodes. There is a dominant right peritracheal node measuring 2.0 x 1.5 cm. The lungs are clear except for some minimal atelectasis in the left lower lobe. There are no suspicious osseous lesions in the chest. For description of findings in the upper abdomen, please see the abdomen and pelvis CT report dictated separately. Further review demonstrates an enlarged right epicardial lymph node measuring 1.3 x 1.5 cm. IMPRESSION 1. There is mild mediastinal adenopathy, as detailed above, which could reflect metastatic disease or could be reactive. ST[facility] A Service of [facility] & [facility] RADIOLOGY TEXT RESULTS PATIENT: MILLI ORTIZ JR LOCATION: [facility] 450-01 : [birth year] UNIT #: [id number] AGE: [address]: Chari Duarte MD SEX: M ORDER DR: 2. No pulmonary nodules are seen and there is nothing else to suggest potential metastatic disease to the chest. 3. For description of findings in the upper abdomen, please see the abdomen and pelvis CT report dictated separately. Dictated by... Sebastian Erickson Jr., M.D. THIS IS AN ELECTRONICALLY VERIFIED REPORT Sebastian Erickson Jr., M.D. at 11/26/2016 9:44 PM CHRISTINE/kiran TD: 11/26/2016 18:44 JOB #: [id number] MEDICAL IMAGING REPORT Page 1 of 1 COPY
--- NOTE | ~2016-11-25 | CR72 ---
[facility] A Service of [facility] & [facility] RADIOLOGY TEXT RESULTS PATIENT: MILLI ORTIZ JR LOCATION: [facility] 312- : [birth year] UNIT #: [id number] AGE: [address]: Chari Duarte MD SEX: M ORDER DR: [id number] [facility] [address] [place], [place] [address] [id number] I MR#: [id number] Acc #: [id number] NAME: MILLI ORTIZ : 1950 SEX: M STUDY DATE/TIME: UNIT: [facility] ROOM: 312 STUDY DESCRIPTION: CR Chest Single View Portable Attending Physician: Chari Duarte M.D. Ordering Physician: Tony Nair M.D. Primary Care Physician: Monica Lee MEDICAL IMAGING REPORT This report is preliminary unless electronic signature is present EXAM Chest portable 12/13/2016 1703 hours HISTORY Chest pain, shortness of air, and cough and fever since yesterday. FINDINGS Portable upright chest demonstrates low lung volumes. Right IJ catheter terminates in the right atrium without change. Left subclavian single lead pacer/AICD device is stable. There is mild cardiomegaly and tortuous aorta. Lung volumes remain low with increase in hazy patchy density at both lung bases. This could represent atelectasis. Basilar pneumonia or basilar edema could have this appearance. IMPRESSION Persistently low lung volumes with satisfactory positioning of support equipment. There is stable cardiomegaly and tortuous aorta. There is increase in patchy bibasilar airspace densities since 12/11/2016. Findings could represent atelectasis or pneumonia. Basilar edema is possible. No definite effusions seen. STAT * RESULT Dictated by... Elizabeth Null M.D. THIS IS AN ELECTRONICALLY VERIFIED REPORT Elizabeth Null M.D. at 12/13/2016 8:02 PM SMM/to TD: 12/13/2016 17:48 [facility] A Service of [facility] & [facility] RADIOLOGY TEXT RESULTS PATIENT: MILLI ORTIZ JR LOCATION: [facility] 312-01 : [birth year] UNIT #: [id number] AGE: [address]: Chari Duarte MD SEX: M ORDER DR: JOB #: [id number] MEDICAL IMAGING REPORT Page 1 of 1 COPY
--- NOTE | ~2016-11-25 | OR ---
Unit #: [id number] #: [id number] Patient: MILLI ORTIZ JR [id number] [facility]. [address] [place], [place] [address] [id number] I MR#: [id number] NAME: MILLI ORTIZ JR ROOM: 558 Date of Procedure: 12/01/2016 Admission Date: 11/25/2016 Surgeon: Stepan Keith Jr., M.D. : 1950 Attending Physician: Chari Duarte M.D. Primary Care Physician: Monica Lee OPERATIVE REPORT INDICATIONS FOR PROCEDURE The patient is a 66-year-old black male, who was admitted complaining of arm pain, was noted to have evidence of problems as well as some atrial fibrillation with rapid ventricular response. He also was noted to have some congestive heart failure and has been on Eliquis. He was brought in, worked up, noted to have evidence of anemia, and had a colonoscopy which revealed evidence of cancer of the left colon. This was near totally obstructing. He also had a CT scan that showed a significant amount of metastatic disease in the liver. He is brought to the operating room at this time for left colectomy for obstruction. He understands the procedure including the risks, including that of ongoing cancer with progression, anastomotic leak, bleeding, intra-abdominal organ injury, and abscess formation, and infection, and consents. PREOPERATIVE DIAGNOSIS Advanced stage IV cancer of the colon. POSTOPERATIVE DIAGNOSES Advanced stage IV cancer of the colon, noting ascites as well as a large cancer in the left upper quadrant in the splenic flexure area. There were also innumerable mets in both lobes of the liver. ANESTHESIA General with endotracheal intubation. DIPPER AND DRIER Vandana Vieira. PROCEDURES PERFORMED Exploratory laparotomy, takedown of splenic flexure with left colectomy and [id number] VIKTORIA anastomosis between the right transverse colon and the sigmoid colon. DESCRIPTION OF PROCEDURE The patient was positioned in supine position. After being anesthetized and intubated, he was prepped and draped in routine fashion for exploration through midline incision. An incision was made extending from below the xiphoid down to the left of the umbilicus and approximately 2 inches below the umbilicus. This was carried down through the subcutaneous tissue through the linea alba of the peritoneal cavity with the Bovie cautery. Upon opening the peritoneal cavity, there was moderate amount of bloody ascitic fluid. This was all removed with the suction Unit #: [id number] #: [id number] Patient: MILLI ORTIZ JR device. The remaining of our incision was opened with cutting edge of the Bovie cautery. Intra-abdominal exploration was carried out. The patient noted to have extensive metastatic cancer in both lobes of the liver along with at least a liter to a liter and half of bloody ascitic fluid. There was a palpable cancer in the left upper quadrant of the abdomen nothing lower than this. At this point, the left colon was freed up, as well as the transverse colon and the transverse colon was stapled and divided with a VIKTORIA stapling device and the sigmoid colon likewise was stapled and divided with a VIKTORIA stapling device. The splenic flexure was taken down with multiple vessels being either hemoclipped and divided or taken down with the Bovie cautery. Several vessels were ligated with 2-0 silk sutures. After the splenic flexure was taken down, the mesenteric vessels were clamped, divided, and ligated with 0 silk sutures and the specimen removed. The abdomen was copiously irrigated with saline solution. There was no evidence of any injury to the spleen. At this point, the proximal and distal limbs of the colon were brought up and anastomosed kmjy-kf-etuk with a VIKTORIA stapling device and the anastomotic connection was checked and there was no evidence of any bleeding from the anastomosis. The remaining opening was closed with a TA 60 stapler using 3.5 mm len. The staple line was oversewn with interrupted 3-0 silk sutures using Lembert stitches and omentum was placed over the top of this. The abdomen was then copiously irrigated with saline solution and after all lap sponges were removed, the quadrants were all checked, there was no evidence of any bleeding from the area of the dissection. The midline was closed with interrupted #1 Vicryl suture in single fascial layer closure. Subcutaneous tissue was irrigated and after hemostasis was achieved with Bovie cautery, skin edges were approximated with stainless-steel skin clips and skin stapling device. Sterile dressings were applied externally. Estimated blood loss less than 300 mL. The patient received less than 3000 mL crystalloid solution during the procedure. Sponges and instrument counts were correct x3. No drains used. No complications. The patient taken to the recovery room with stable vital signs in guarded condition. Dictated by... Stepan Keith Jr., Lupe MUÑOZ/lawrence TD: 12/02/2016 01:51 JOB #: [id number] OPERATIVE REPORT Page 1 of 1 X Stepan Keith MD X PROCEDURE OPERATIVE NOTE
--- NOTE | ~2016-11-25 | CR72 ---
[facility] A Service of [facility] RADIOLOGY TEXT RESULTS PATIENT: MILLI ORTIZ JR LOCATION: [address] : [birth year] UNIT #: [id number] AGE: [address]: Chari Duarte MD SEX: M ORDER DR: [id number] [facility] [address] [facility]. [place], [place] [address] [id number] I MR#: [id number] Acc #: [id number] NAME: MILLI ORTIZ : 1950 SEX: M STUDY DATE/TIME: 12/02/2016 17:47 UNIT: [facility] ROOM: [facility] STUDY DESCRIPTION: CR Chest Single View Portable Attending Physician: Chari Duarte M.D. Ordering Physician: Garett Albarran M.D. MEDICAL IMAGING REPORT This report is preliminary unless electronic signature is present EXAM Chest x-ray portable HISTORY Atrial fibrillation. CHF. Pacemaker. Complains of congestive failure for a week. TECHNIQUE Single frontal portable view of the chest timed 17:47 on 12/02/2016 compared to 11/25/2016. FINDINGS No change in the left-sided pacemaker. Interval placement of a nasogastric tube. The lung volumes are lower and there is patchy airspace disease now seen perihilar to lung base regions. This could be atelectasis given the lower lung volumes but please correlate for any clinical concern for aspiration or pneumonia. Followup to clearing is recommended. There is no pleural effusion or pneumothorax. Borderline cardiac silhouette enlargement. IMPRESSION Lower lung volumes with development of perihilar to basilar airspace disease when comparison is made to 11/25/2016. This could be atelectasis given the lower lung volumes but please correlate for any clinical concern for aspiration or pneumonia. Patient has a pacemaker. There is nothing to suggest acute congestive failure. No pleural effusion or pneumothorax is seen. There is a new nasogastric tube that terminates at the stomach. Cardiac silhouette size is borderline enlarged. Dictated by... Marialuisa Bagley M.D. [facility] A Service of [facility] RADIOLOGY TEXT RESULTS PATIENT: MILLI ORTIZ JR LOCATION: [address] : [birth year] UNIT #: [id number] AGE: [address]: Chari Duarte MD SEX: M ORDER DR: THIS IS AN ELECTRONICALLY VERIFIED REPORT Marialuisa Bagley M.D. at 12/05/2016 7:39 AM SAC/pcl TD: 12/03/2016 01:14 JOB #: [id number] MEDICAL IMAGING REPORT Page 1 of 1 COPY
--- NOTE | ~2016-11-25 | EKG ---
PATIENT: MILLI ORTIZ UNIT #: [id number] Ventricular Rate: 114 BPM Atrial Rate: 441 BPM QRS Duration: 76 ms Q-T Interval: 300 ms QTC Calculation(Bezet): 413 ms Calculated R Lincoln: 25 degrees Calculated T Lincoln: 174 degrees Diagnosis Line: Atrial fibrillation with rapid ventricular Diagnosis Line: response Diagnosis Line: Nonspecific ST and T wave abnormality Diagnosis Line: Abnormal ECG Diagnosis Line: When compared with ECG of 02-DEC-2016 12:15, Diagnosis Line: Atrial fibrillation has replaced Sinus rhythm Diagnosis Line: Inverted T waves have replaced nonspecific T wave Diagnosis Line: abnormality in Inferior leads Diagnosis Line: T wave inversion more evident in Anterolateral Diagnosis Line: leads Diagnosis Line: Confirmed by NASIR RAI MD ([id number]) on Diagnosis Line: 12/04/2016 10:16:32 PM INTERPRETING MD: BC
--- NOTE | ~2016-11-25 | CR63 ---
[facility] A Service of [facility] & [facility] RADIOLOGY TEXT RESULTS PATIENT: MILLI ORTIZ JR [facility] [birth year] UNIT #: [id number] AGE: [address]: Chari Duarte MD SEX: M ORDER DR: [id number] [facility] [address] [facility] [place] [facility]. [place], [place] [address] [id number] I MR#: [id number] Acc #: [id number] NAME: MILLI ORTIZ JR : 1950 SEX: M STUDY DATE/TIME: 11/25/2016 14:15 UNIT: [facility] ROOM: 66013 STUDY DESCRIPTION: CR Chest 2 View Attending Physician: Fabiana Sheffield M.D. Ordering Physician: Fabiana Sheffield M.D. Primary Care Physician: Monica Lee R.N. MEDICAL IMAGING REPORT This report is preliminary unless electronic signature is present EXAM Chest 11/25/2016 HISTORY 66-year-old male patient with elevated white blood cell count. Left upper extremity DVT. Symptoms today. History of congestive failure and atrial fibrillation. COMPARISON Chest 08/27/2016. FINDINGS 2 view chest demonstrates stable cardiac enlargement and stable aortic ectasia. Pacemaker is positioned on the left with single pacing lead well located. Bilateral lungs are expanded and remain clear. Costophrenic angles are preserved. IMPRESSION No acute chest finding. Cardiac enlargement and aortic ectasia is stable. Single pacing lead well positioned. Dictated by... Long Kaur M.D. THIS IS AN ELECTRONICALLY VERIFIED REPORT Long Kaur M.D. at 12/05/2016 8:10 AM Fatuma TD: 11/25/2016 16:33 JOB #: [id number] MEDICAL IMAGING REPORT Page 1 of 1 COPY
--- NOTE | ~2016-11-25 | XA60 ---
[facility] A Service of [facility] RADIOLOGY TEXT RESULTS PATIENT: MILLI ORTIZ JR LOCATION: [facility] : [birth year] UNIT #: [id number] AGE: [address]: Chari Duarte MD SEX: M ORDER DR: [id number] [place] [id number] [facility]. [place], [place] [address] [id number] I MR#: [id number] Acc #: [id number] NAME: MILLI ORTIZ JR : 1950 SEX: M STUDY DATE/TIME: 11/29/2016 12:38 UNIT: [facility] ROOM: [facility] STUDY DESCRIPTION: XA BX Perc Liver Attending Physician: Chari Duarte M.D. Ordering Physician: Anoop Escalona M.D., Ph.D. Primary Care Physician: Monica Lee MEDICAL IMAGING REPORT This report is preliminary unless electronic signature is present EXAM Ultrasound-guided liver biopsy HISTORY Widespread hepatic metastasis. TECHNIQUE The procedure was explained to the patient including risks, benefits and complications. Informed consent was obtained and a formal time-out procedure was utilized. Using sterile technique and following local anesthesia with 1% Xylocaine as well as conscious sedation, which was administered by nursing who was present and monitoring the patient during the examination, an 18-gauge biopsy gun was used to obtain one core of tissue from the liver, to include one of the more dominant liver lesions. The tissue was placed in formalin and sent for appropriate stains and analysis. The patient tolerated the procedure well. He will be kept on bedrest for 5 hours following the biopsy with close monitoring of vital signs. IMPRESSION Successful ultrasound-guided liver biopsy with conscious sedation. Dictated by... Sebastian Anna M.D. THIS IS AN ELECTRONICALLY VERIFIED REPORT Sebastian Anna M.D. at 12/01/2016 4:33 PM RLF/cecelia TD: 11/29/2016 21:51 JOB #: [id number] [facility] A Service of [facility] RADIOLOGY TEXT RESULTS PATIENT: MILLI ORTIZ JR LOCATION: [facility] 558-01 : [birth year] UNIT #: [id number] AGE: [address]: Chari Duarte MD SEX: M ORDER DR: MEDICAL IMAGING REPORT Page 1 of 1 COPY
--- NOTE | ~2016-11-25 | CO ---
Unit #: [id number] #: [id number] Patient: MILLI ORTIZ JR [id number] [address] [place], [place] [address] [id number] I MR#: [id number] NAME: MILLI ORTIZ ROOM: [facility]ICCU2 Age: 66 Sex: M Admission Date: 11/25/2016 : 1950 Attending Physician: Chari Duarte M.D. Primary Care Physician: Moncia Lee Aprn CONSULTATION REPORT REASON FOR CONSULTATION Renal failure, hyperkalemia. HISTORY OF PRESENT ILLNESS Patient is a 66-year-old Afro-Malaysian male with significant past medical history of congestive heart failure, ejection fraction 10% to 15%, hypertension and cardiomyopathy with AICD placed in the past, ejection fraction 10% to 15% when checked last time. Patient was admitted with left upper quadrant extremity swelling and found to have some extensive DVT and workup for the DVT did show that patient has colon cancer with metastatic disease to the liver and the lung. Patient had hemicolectomy done day before yesterday. Yesterday patient's urine output dropped. Potassium increased to 6. Creatinine increased and a renal consult was called. Patient was given fluid initially and patient developed some pulmonary edema. Diuretics were initiated without any significant relief at that time. Patient was transferred to ICU for further evaluation. PAST MEDICAL HISTORY As per records significant for congestive heart failure with AICD placement, atrial fibrillation, maybe some chronic kidney disease, baseline creatinine of 1.4, history of heavy alcohol problem. SOCIAL HISTORY Patient works at [employer]. He is not a smoker but he used to drink heavily. FAMILY HISTORY Noncontributory. HOME MEDICATION Included Eliquis and also Entresto, Amlodipine. REVIEW OF SYSTEMS Already explained in history of present illness. All other review of systems could not be obtained. PHYSICAL EXAMINATION GENERAL: On examination the patient is an elderly male, not in any acute distress. Patient is alert and oriented, not in any acute distress. VITALS: Last blood pressure is 123/96, pulse 100, temperature 97, respiratory rate 20. HEAD AND NECK EXAMINATION: Pupils reactive to light. Mucous membrane is on the dry side. Neck is supple. No JVD. No palpable lymph node in the Unit #: [id number] #: [id number] Patient: MLILI ORTIZ JR neck. CHEST: Patient has bilateral air entry without any rhonchi or crackle at this time. HEART: Regular rate and rhythm but patient has slight murmur. Pacemaker on the left upper part of the chest. ABDOMEN: Protuberant with status post surgery. Bowel sounds are decreased. EXTREMITIES: No edema at all. Peripheral pulses are palpable. DIAGNOSTIC STUDIES LABORATORY: Labs were reviewed. Potassium of 6.2, creatinine of 2.2, a hemoglobin of 11, white cell count is 24,000. ASSESSMENT AND PLAN 1. Acute kidney injury likely related to hemodynamic instability in the presence of angiotensin receptor sofie. 2. Congestive heart failure. At this time patient seems to be volume depleted so IV fluid has been initiated. 3. Significant hyperkalemia secondary to angiotensin receptor sofie and maybe some potassium reabsorption status post surgery and also complicated by acute kidney injury. Will follow up closely and hyperkalemic treatment started. Patient was given diuretics, IV fluid, insulin, D50. 4. Carcinoma of the colon, status post surgery. 5. Metastatic disease to the liver and the lung. 6. Anemia. 7. Leukocytosis. DISCUSSION At this time will try to give diuresis. If not improving, patient will need a renal replacement therapy. Discussed with the patient's daughter in detail and patient was transferred to ICU at that time. Dictated by... Lupe Garcia/lisa TD: 12/03/2016 16:16 JOB #: [id number] CONSULTATION REPORT Page 1 of 1 X Garett Albarran MD CONSULTATION REPORT
--- NOTE | ~2016-11-25 | CT2 ---
[facility] A Service of [facility] & [facility] RADIOLOGY TEXT RESULTS PATIENT: MILLI ORTIZ JR LOCATION: [facility] 450-01 : [birth year] UNIT #: [id number] AGE: [address]: Chari Duarte MD SEX: M ORDER DR: [id number] [facility] [address] [facility]. [place], [place] [address] [id number] I MR#: [id number] Acc #: [id number] NAME: MILLI ORTIZ : 1950 SEX: M STUDY DATE/TIME: 11/26/2016 16:21 UNIT: [facility] ROOM: [facility] STUDY DESCRIPTION: CT Abd and Pelv W Cont Attending Physician: Chari Duarte M.D. Ordering Physician: Anoop Escalona M.D., Ph.D. Primary Care Physician: Monica Lee R.N. MEDICAL IMAGING REPORT This report is preliminary unless electronic signature is present EXAM CT of abdomen and pelvis, 11/26. INDICATION Abnormal elevated liver function test. Patient had abnormal ultrasound 11/25/16, showing metastatic disease to the liver. TECHNIQUE Axial images were obtained through the abdomen and pelvis following IV contrast administration. Multiplanar reformats were obtained. COMPARISON No comparison. This CT exam was performed with one or more of the following radiation dose reduction techniques: automatic exposure control, adjustment of mA and/or kV according to patient size, and iterative reconstruction. FINDINGS ABDOMEN: For description of findings in the lung bases, please see the chest CT report dictated separately. Gallbladder is contracted and not well evaluated. No biliary obstruction is seen. Innumerable low density lesions are seen throughout the liver compatible with metastatic disease. For example, a dominant lesion in segment 7 of the right hepatic lobe measures 4.0 x 4.0 cm. A dominant lesion in the left hepatic lobe measures 4.1 x 3.3 cm. Dominant lesion in the inferior right hepatic lobe measures 3.9 x 3.6 cm. There is a trace amount of free fluid adjacent to the liver. The remaining solid organs are normal. There is a potential area of abnormal thickening in the distal transverse colon in the left upper quadrant. This could reflect a primary colonic malignancy. Correlation with colonoscopy is recommended. The remainder of the unopacified GI tract is within normal limits. There is an enlarged STS. [facility] A Service of [facility] RADIOLOGY TEXT RESULTS PATIENT: MILLI ORTIZ JR LOCATION: [facility] 450-01 : [birth year] UNIT #: [id number] AGE: [address]: Chari Duarte MD SEX: M ORDER DR: periportal lymph node measuring 1.2 x 2.5 cm. No other definite adenopathy is seen. PELVIS: The appendix is normal. The remainder of the unopacified GI tract is grossly normal as well. There is a small volume of free fluid. There are bilateral inguinal hernias, left larger than right. Both of the hernias contain free fluid as well. Urinary bladder is decompressed and not well evaluated. No adenopathy is identified. No suspicious osseous lesions are identified in the abdomen or pelvis. IMPRESSION 1. Widespread metastatic disease to the liver. 2. Enlarged periportal lymph node. No other definite adenopathy identified in the abdomen or pelvis. 3. Potential mass involving the distal transverse colon. This could reflect the primary site of malignancy. Colonoscopy recommended. 4. Small volume of free fluid in the abdomen and pelvis. 5. Bilateral inguinal hernias left greater than right. These contain free fluid and abdominal fat. 6. Not mentioned above, is a right internal iliac artery aneurysm measuring up to 3.3 x 2.7 cm. 7. No suspicious osseous lesions in the abdomen or pelvis. Dictated by... Sebastian Erickson Jr., M.D. THIS IS AN ELECTRONICALLY VERIFIED REPORT Sebastian Erickson Jr., M.D. at 11/26/2016 9:44 PM CHRISTINE/kiran TD: 11/26/2016 19:00 JOB #: [id number] MEDICAL IMAGING REPORT Page 1 of 1 COPY
--- NOTE | ~2016-11-25 | CR72 ---
[facility] A Service of [facility] & [facility] RADIOLOGY TEXT RESULTS PATIENT: MILLI ORTIZ JR LOCATION: [address] : [birth year] UNIT #: [id number] AGE: [address]: Chari Duarte MD SEX: M ORDER DR: [id number] [facility] [address] [place], [place] [address] [id number] I MR#: [id number] Acc #: [id number] NAME: MILLI ORTIZ : 1950 SEX: M STUDY DATE/TIME: 12/05/2016 10:22 UNIT: [facility] ROOM: [facility] STUDY DESCRIPTION: CR Chest Single View Portable Attending Physician: Chari Duarte M.D. Ordering Physician: Garett Albarran M.D. Primary Care Physician: Monica Lee Aprn MEDICAL IMAGING REPORT This report is preliminary unless electronic signature is present EXAM Chest, portable, 12/05/2016, 1022 hours. CLINICAL HISTORY 66-year-old man with fluid overload, shortness of air. History of hypertension, atrial fibrillation, and pacer device. Symptoms began in mid October. FINDINGS Portable upright chest demonstrates right IJ catheter with tip in right atrium. Left subclavian pacer device unchanged. Lung volumes are low with mild cardiomegaly and perihilar and basilar vascular crowding. No definite acute pulmonary density or pleural effusion. IMPRESSION No significant change from 12/04/2016. Low lung volumes. Dictated by... Elizabeth Null M.D. THIS IS AN ELECTRONICALLY VERIFIED REPORT Elizabeth Null M.D. at 12/05/2016 2:29 PM FRANCESCA/carlos a TD: 12/05/2016 12:23 JOB #: [id number] MEDICAL IMAGING REPORT Page 1 of 1 COPY
--- NOTE | ~2016-11-25 | US140 ---
[facility] A Service of [facility] & [facility] RADIOLOGY TEXT RESULTS PATIENT: MILLI ORTIZ JR LOCATION: [facility] : [birth year] UNIT #: [id number] AGE: [address]: Chari Duarte MD SEX: M ORDER DR: [id number] [facility] [address] [facility]. [place], [place] [address] [id number] I MR#: [id number] Acc #: [id number] NAME: MILLI ORTIZ JR : 1950 SEX: M STUDY DATE/TIME: 11/25/2016 10:52 UNIT: [facility] ROOM: 67372 STUDY DESCRIPTION: US UE Veins Unilat or Ltd Stdy Attending Physician: Fabaina Sheffield M.D. Ordering Physician: Bushra Skinner M.D. Primary Care Physician: Monica Lee MEDICAL IMAGING REPORT This report is preliminary unless electronic signature is present EXAM Unilateral lower extremity ultrasound, 11/25/16 HISTORY Left upper extremity pain FINDINGS Real time ultrasonography of the left upper extremity and venous structures was performed. Bains scale color Doppler, Doppler wave interrogation utilized. Left internal jugular vein patent. Left subclavian vein contains echogenic material. Noncompressible. Flow not demonstrated on color Doppler interrogation. Similar findings in left axillary vein. Findings consistent with acute DVT in these regions. The brachial veins are patent with normal compressibility and color Doppler interrogation. Cephalic and basilic veins are patent. IMPRESSION 1. Findings discussed directly with Dr. Skinner at the time of this dictation. Acute occlusive DVT in left subclavian and axillary veins. Other deep venous structures show no additional DVT. 2. No left upper extremity superficial venous thrombosis. Dictated by... Kalin Renteria M.D. THIS IS AN ELECTRONICALLY VERIFIED REPORT Kalin Renteria M.D. at 11/29/2016 4:56 PM Tao TD: 11/25/2016 13:58 JOB #: [id number] [facility] A Service of [facility] & [facility] RADIOLOGY TEXT RESULTS PATIENT: MILLI ORTIZ JR LOCATION: [facility] 558-01 : [birth year] UNIT #: [id number] AGE: [address]: Chari Duarte MD SEX: M ORDER DR: MEDICAL IMAGING REPORT Page 1 of 1 COPY
--- NOTE | ~2016-11-25 | CR72 ---
[facility] A Service of [facility] RADIOLOGY TEXT RESULTS PATIENT: MILLI ORTIZ JR LOCATION: [address] : [birth year] UNIT #: [id number] AGE: [address]: Chari Duarte MD SEX: M ORDER DR: [id number] [facility] [address] [facility]. [place], [place] [address] [id number] I MR#: [id number] Acc #: [id number] NAME: MILLI ORTIZ : 1950 SEX: M STUDY DATE/TIME: 12/02/2016 23:17 [facility] ST[facility]Y DESCRIPTION: CR Chest Single View Portable Attending Physician: Chari Duarte M.D. Ordering Physician: Amira Choi M.D. Primary Care Physician: Monica Lee Aprn MEDICAL IMAGING REPORT This report is preliminary unless electronic signature is present EXAM Chest x-ray, 12/02/2016. HISTORY Line placement. TECHNIQUE AP portable chest x-ray. FINDINGS Newly placed right IJ Shiley catheter tip is in good position in the low SVC near its junction with the right atrium. No visible pneumothorax. NG tube has been removed since earlier today. The exam is otherwise unchanged. Low lung volumes with minimal basilar atelectasis. IMPRESSION No pneumothorax following placement of well-positioned right IJ Shiley catheter. Dictated by... Khadar Caro M.D. THIS IS AN ELECTRONICALLY VERIFIED REPORT Khadar Caro M.D. at 12/03/2016 9:51 PM RGW/tmw TD: 12/03/2016 11:59 JOB #: [id number] MEDICAL IMAGING REPORT [facility] A Service [facility] RADIOLOGY TEXT RESULTS PATIENT: MILLI ORTIZ JR LOCATION: [address] : [birth year] UNIT #: [id number] AGE: [address]: Chari Duarte MD SEX: M ORDER DR: Page 1 of 1 COPY
--- NOTE | ~2016-11-25 | EKG ---
PATIENT: MILLI ORTIZ UNIT #: [id number] Ventricular Rate: 114 BPM Atrial Rate: 105 BPM QRS Duration: 70 ms Q-T Interval: 312 ms QTC Calculation(Bezet): 430 ms Calculated R [place]: -5 degrees Calculated T [place]: -115 degrees Diagnosis Line: Atrial fibrillation with rapid ventricular Diagnosis Line: response Diagnosis Line: Nonspecific ST and T wave abnormality Diagnosis Line: Abnormal ECG Diagnosis Line: No previous ECGs available Diagnosis Line: Confirmed by NASIR RAI MD ([id number]) on Diagnosis Line: 11/29/2016 5:24:57 PM INTERPRETING MD: BC
--- NOTE | ~2016-11-25 | CO ---
Unit #: [id number] #: [id number] Patient: MILLI CASILLAS JR [id number] [address] [place], [place] [address] [id number] I MR#: [id number] NAME: MILLI CASILLAS JR ROOM: 450 Age: 66 Sex: M Admission Date: 11/25/2016 : 1950 Attending Physician: Chari Duarte M.D. Primary Care Physician: Monica Lee Aprn Consultation Date: 11/26/2016 CONSULTATION REPORT REASON FOR CONSULTATION 1. DVT of the left upper extremity. 2. Hepatic lesions concerning for metastatic disease. HISTORY OF PRESENT ILLNESS Mr. Casillas is a very pleasant 66-year-old gentleman with multiple medical problems which include paroxysmal atrial fibrillation, because of which the patient is on chronic anticoagulation with Eliquis; hypertension; congestive heart failure; valvular heart disease; chronic kidney disease; benign prostatic hypertrophy; hypothyroidism; and history of alcohol abuse. The patient was now admitted with swelling and pain of the left upper extremity, which showed on the venous Doppler an occlusive DVT involving the left subclavian and axillary veins. Currently, the patient is anticoagulated with IV heparin. He also underwent ultrasound evaluation of the right upper quadrant, because of abnormal LFTs and he was found to have multiple low attenuation lesions concerning for hepatic metastases. PAST MEDICAL HISTORY The patient is known to have congestive heart failure. His last ejection fraction was 10% to 15% demonstrated on echocardiograph. He is known to have cardiac catheterization with normal coronary arteries. He is status post AICD placement. CURRENT MEDICATIONS Include potassium chloride, Prinivil, aspirin, Eliquis, furosemide, amlodipine, and Entresto. ALLERGIES No known drug allergies. SOCIAL HISTORY The patient works at [employer], which is a facility. No tobacco abuse. History of heavy alcohol abuse. He has recently cut down his alcohol intake. He used to drink gin. Currently, he drinks beer. REVIEW OF SYSTEMS CONSTITUTIONAL: Patient denies fevers, chills, sweats, and weight changes. EYES: Patient denies any visual symptoms. EARS, NOSE, AND THROAT: No difficulties with hearing. No symptoms of rhinitis or sore throat. CARDIOVASCULAR: Patient denies chest pains, palpitations, orthopnea, or paroxysmal nocturnal dyspnea. Unit #: [id number] #: [id number] Patient: MILLI CASILLAS JR RESPIRATORY: No dyspnea on exertion, no wheezing or cough. GASTROINTESTINAL: No nausea, vomiting, diarrhea, constipation, abdominal pain, hematochezia or melena. GENITOURINARY: No urinary hesitancy or dribbling. No nocturia or urinary frequency. No abnormal urethral discharge. MUSCULOSKELETAL: No myalgias or arthralgias. NEUROLOGIC: No chronic headaches, no seizures. Patient denies numbness, tingling or weakness. PSYCHIATRIC: Patient denies problems with mood disturbance. No problems with anxiety. ENDOCRINE: No excessive urination or excessive thirst. DERMATOLOGIC: Patient denies any rashes or skin changes. ALLERGIC/IMMUNOLOGIC: Denies any symptoms. HEMATOLOGIC/LYMPHATIC: Denies any symptoms. EXTREMITIES: Left upper extremity swelling and pain consistent with DVT. PHYSICAL EXAMINATION GENERAL: Patient appears well developed, well nourished, and healthy. Personality: Pleasant and cooperative. Mental status: Alert and oriented. Stature: ECOG performance score 0. VITAL SIGNS: Temperature 98.6, pulse 69, respirations 17, blood pressure 107/82, oxygen saturation 100% on room air. HEENT: Examination of head, eyes, ears, nose and throat is unremarkable. HEMATOLOGIC/LYMPHATIC: There is no palpable adenopathy in the inguinal, axillary or cervical areas. CARDIOVASCULAR: S1 and S2 regular. Normal rate without any murmurs or gallops. RESPIRATORY: Chest symmetrical, normal, breath sounds equal, bilaterally symmetrical. No rales or rhonchi, and no dullness to percussion. ABDOMEN/GASTROINTESTINAL: Abdomen is soft, nontender, and without palpable masses. No hepatosplenomegaly. EXTREMITIES: Left upper extremity swelling and tenderness. NEUROLOGICAL: Patient is alert and oriented x3. Cranial nerves II-XII are grossly intact. Motor strength is 5/5 and equal in all four extremities. Deep tendon reflexes are +2/4 and equal bilaterally. MUSCULOSKELETAL: No evidence of joint swelling, bone tenderness or muscle tenderness is appreciable. SKIN: No lesions or rashes. PSYCHIATRIC: No delusions or hallucinations, no loose associations, no flight of ideas, no tangentiality. Affect is appropriate. No psychomotor slowing or agitation. Eye contact is appropriate. DIAGNOSTIC STUDIES LABORATORY RESULTS: His alkaline phosphatase was elevated at 381, AST 64, ALT 83. White count 19.6, hemoglobin 11.2, hematocrit 35. IMAGING STUDIES: Left upper extremity venous Doppler shows an occlusive DVT involving the left subclavian and axillary veins. The right upper quadrant ultrasound shows multiple lesions in the liver concerning for metastatic disease. ASSESSMENT AND PLAN Mr. Casillas is a very pleasant 66-year-old gentleman, who presents with left upper extremity deep vein thrombosis while taking Eliquis anticoagulation. Currently, he is anticoagulated with IV heparin, which will be continued. Most likely the patient will need a different anticoagulant since he has failed Eliquis therapy. We are not going to change him on oral Unit #: [id number] #: [id number] Patient: MILLI CASILLAS JR anticoagulants at this point, because the patient needs a liver biopsy, because of concern for metastatic disease. The patient has had a colonoscopy in the past, which was unremarkable and he is a nonsmoker, so there is a quite possible that he has primary hepatocellular carcinoma, but secondary malignancy from the GI tract cannot be excluded at this point. We will be getting a CT scan of the chest, abdomen, and pelvis with intravenous contrast as well as tumor markers with CEA, alpha-fetoprotein, and CA-19-9. I discussed the findings of the ultrasound examination and diagnostic plan at length with the patient and answered his questions. Dictated by... Anoop Escalona M.D., Ph.D. DIALLO/lawrence TD: 11/27/2016 03:47 JOB #: [id number] CONSULTATION REPORT Page 1 of 1 X X CONSULTATION REPORT
--- NOTE | ~2016-11-25 | CR72 ---
[facility] A Service of [facility] RADIOLOGY TEXT RESULTS PATIENT: MILLI ORTIZ JR LOCATION: [facility] 312- : [birth year] UNIT #: [id number] AGE: [address]: Chari Duarte MD SEX: M ORDER DR: [id number] [facility] [address] [facility]. [place], [place] [address] [id number] I MR#: [id number] Acc #: [id number] NAME: MILLI ORTIZ : 1950 SEX: M STUDY DATE/TIME: 12/11/2016 14:39 [facility] STUDY DESCRIPTION: CR Chest Single View Portable Attending Physician: Chari Duarte M.D. Ordering Physician: Garett Albarran M.D. Primary Care Physician: Monica Lee MEDICAL IMAGING REPORT This report is preliminary unless electronic signature is present EXAM Single view of the chest dated 12/11/2016 at 14:39 hours. COMPARISON Single view chest dated 12/06/2016 at 05:24 hours. HISTORY Shortness of air, weakness since November 25, 2016. History of colon cancer with mets to the liver. FINDINGS Frontal view of the chest was obtained. Redemonstrated is a pacemaker in the left upper chest on the right IJ approach central catheter with the tip in the region of the cavoatrial junction. Previously noted cardiac size is stable. No significant enlargement could be discerned. There is interval new lung abnormality. There is patchy band-like linear atelectasis/infiltrate in the left mid to inferior aspect of the lung. Perihilar linear opacities and patchy alveolar infiltrate extending from the right hilum inferiorly to the right lung base are noted, worse since prior study. No significant new pleural effusion or pneumothorax is seen. Dictated by... Ellen Merrill M.D. THIS IS AN ELECTRONICALLY VERIFIED REPORT Ellen Merrill M.D. at 12/12/2016 5:12 PM CPR/ea TD: 12/11/2016 23:35 JOB #: [id number] MEDICAL IMAGING REPORT [facility] A Service of [facility] RADIOLOGY TEXT RESULTS PATIENT: MILLI ORTIZ JR LOCATION: [facility] 312-01 : [birth year] UNIT #: [id number] AGE: [address]: Chari Duarte MD SEX: M ORDER DR: Page 1 of 1 COPY
--- NOTE | ~2016-11-25 | CO ---
Unit #: [id number] #: [id number] Patient: MILLI ORTIZ JR [id number] [address] [address] [id number] I MR#: [id number] NAME: MILLI ORTIZ ROOM: [facility] Age: 66 Sex: M Admission Date: 11/25/2016 : 1950 Attending Physician: Chari Duarte M.D. Primary Care Physician: Monica Lee Consultation Date: 12/02/2016 CONSULTATION REPORT REASON FOR CONSULT Critical care management. HISTORY OF PRESENT ILLNESS This is a 66-year-old, -Thai gentleman with past medical history significant for chronic systolic congestive heart failure, hypertension, and nonischemic cardiomyopathy status post AICD placement who was transferred to our ICU from the floor earlier today due to critical hyperkalemia. Unfortunately, his potassium has been trending up all day with no urine output; however, we were consulted to see this patient around 9:30 p.m. for stat hemodialysis catheter placement. Patient currently is very weak and fatigued. He is complaining of abdominal pain mainly on touch. He denied any shortness of breath or chest pain. No cough, nausea, or vomiting. PAST MEDICAL HISTORY 1. Chronic systolic congestive heart failure. 2. Permanent atrial fibrillation. 3. Nonischemic cardiomyopathy. 4. Hypertension. 5. Hypothyroidism. 6. Chronic kidney disease. 7. Nonsmoker. 8. History of heavy alcohol abuse. PAST SURGICAL HISTORY AICD placement. SOCIAL HISTORY Patient works at [employer]. He never smoked. He drinks alcohol heavily, but he has cut back his alcohol use to 1-2 beers occasionally. No history of illicit drug use. FAMILY HISTORY Coronary artery disease. ALLERGIES No known drug allergies. Unit #: [id number] #: [id number] Patient: MILLI ORTIZ JR HOME MEDICATIONS 1. Potassium. 2. Coreg. 3. Prinivil. 4. Aspirin. 5. Eliquis. 6. Furosemide. 7. Amlodipine. 8. Entresto. REVIEW OF SYSTEMS Twelve-point review of systems were obtained and were negative, except for what was mentioned in the HPI. PHYSICAL EXAM VITAL SIGNS: Blood pressure 102/62, respiratory rate 18, and O2 saturation 96% on 2 liters nasal cannula. HEENT: Head: Atraumatic and normocephalic. EOMI. NECK: Supple. No JVD. No lymphadenopathy. CHEST: Shallow breathing, but no crackles or rhonchi. HEART: S1 and S2. No murmurs, gallops, or rubs. (1) tender to gentle palpation with dressing that appears to be clean. EXTREMITIES: No edema or cyanosis. SKIN: No rashes. BODY PRESS OPERATOR: Patient is awake, alert, and oriented x3. No focal motor/sensory deficit. DIAGNOSTIC STUDIES LABORATORY: Potassium is 6.3, sodium 137, and chloride 105. White blood count 26.2, hemoglobin 11.8, and platelets 269. IMAGING: Chest x-ray is pending at this time. ASSESSMENT 1. Severe hyperkalemia. 2. Acute on chronic kidney disease. 3. Chronic systolic congestive heart failure. 4. UTI. 5. Stage 4 colon cancer. PLAN 1. Patient is critical with elevated potassium level. Hemodialysis catheter was placed emergently by me and patient to be started on hemodialysis soon. 2. On ultrasound exam, his internal jugular vein appears very collapsed and dehydrated. Due to his low ejection fraction, I will give him gentle hydration over the next four hours and reassess. 3. Levophed drip if needed. 4. Start Cefepime for UTI. 5. DVT/GI prophylaxes. 6. Physical therapy. Critical care time spent on this patient was 38 minutes. Dictated by... Unit #: [id number] #: [id number] Patient: MILLI ORTIZ JR, M.D. EA/pc TD: 12/03/2016 07:20 JOB #: [id number] CONSULTATION REPORT Page 1 of 1 X ANG LONG MD CONSULTATION REPORT
--- NOTE | ~2016-11-25 | CR72 ---
[facility] A Service of [facility] RADIOLOGY TEXT RESULTS PATIENT: MILLI ORTIZ JR LOCATION: [address] : [birth year] UNIT #: [id number] AGE: [address]: Chari Duarte MD SEX: M ORDER DR: [id number] [facility] [address] [facility]. [place], [place] [address] [id number] I MR#: [id number] Acc #: [id number] NAME: MILLI ORTIZ JR : 1950 SEX: M STUDY DATE/TIME: 12/06/2016 5:34 UNIT: [facility] ROOM: [facility] STUDY DESCRIPTION: CR Chest Single View Portable Attending Physician: Chari Duarte M.D. Ordering Physician: [place] Vega M.D. Primary Care Physician: Monica Lee MEDICAL IMAGING REPORT This report is preliminary unless electronic signature is present EXAM Portable chest, 12/06/16 COMPARISON STUDIES 12/05/16 HISTORY Shortness of air and weakness for 11 days, previous colectomy on 12/01. FINDINGS A pleural view of the chest was obtained. The heart size and vascularity are normal. The lungs are clear. Pacemaker and Shiley catheter in good position. IMPRESSION No active disease. Dictated by... Scott Sorto M.D. THIS IS AN ELECTRONICALLY VERIFIED REPORT Scott Sorto M.D. at 12/06/2016 3:54 PM DESIRE/sidney TD: 12/06/2016 13:18 JOB #: [id number] MEDICAL IMAGING REPORT Page 1 of 1 COPY
--- NOTE | ~2016-11-25 | OR ---
Unit #: [id number] #: [id number] Patient: MILLI ORTIZ JR [id number] [address] [place], [place] [address] [id number] I MR#: [id number] NAME: MILLI ORTIZ JR ROOM: [facility] Date of Procedure: 11/30/2016 Admission Date: 11/25/2016 Surgeon: Kalin Peralta M.D. : 1950 Attending Physician: Chari Duarte M.D. Primary Care Physician: Monica Lee OPERATIVE REPORT PREOPERATIVE DIAGNOSIS Possible colon cancer. POSTOPERATIVE DIAGNOSIS Obstructing colon cancer at transverse colon. PROCEDURES PERFORMED 1. Colonoscopy to cecum. 2. Methylene blue tattooing of colon lesion. ANESTHESIA IV sedation. COMPLICATIONS None. INDICATIONS FOR PROCEDURE The patient is a 66-year-old gentleman, who presents with a CT scan shows thickening of his colon as well as what appeared to be metastases to his liver. He presents for colonoscopy. DESCRIPTION OF PROCEDURE The patient was taken to the operating theater and placed in left lateral decubitus position. Digital rectal exam was normal. Colonoscope was then passed under direct vision and navigated through the colon. I identified a partially obstructing circumferential mass. What I believe is the transverse colon versus descending colon. I was able to pop my scope through the mass to evaluate the rest of the colon that was normal. The mass was multilobulated and hemorrhagic. I did tattoo just distal with 2 mL of methylene blue in the subcutaneous tissues. I saw no other pathology. He tolerated the procedure well and sent to recovery room in good condition. Dictated by... Lupe Griggs/lawrence TD: 11/30/2016 23:11 JOB #: [id number] Unit #: [id number] #: [id number] Patient: MILLI ORTIZ JR OPERATIVE REPORT Page 1 of 1 X Kalin Peralta MD PROCEDURE OPERATIVE NOTE
--- NOTE | ~2016-11-25 | EKG ---
PATIENT: MILLI ORTIZ UNIT #: [id number] Ventricular Rate: 115 BPM Atrial Rate: 129 BPM QRS Duration: 80 ms Q-T Interval: 310 ms QTC Calculation(Bezet): 428 ms Calculated R [place]: -7 degrees Calculated T [place]: -131 degrees Diagnosis Line: Atrial fibrillation with rapid ventricular Diagnosis Line: response Diagnosis Line: Nonspecific T wave abnormality , probably Diagnosis Line: digitalis effect Diagnosis Line: Abnormal ECG Diagnosis Line: No previous ECGs available Diagnosis Line: Confirmed by NASIR RAI MD ([id number]) on Diagnosis Line: 11/29/2016 5:14:22 PM INTERPRETING MD: BC
--- NOTE | ~2016-11-25 | CR72 ---
[facility] A Service of [facility] RADIOLOGY TEXT RESULTS PATIENT: MILLI ORTIZ JR LOCATION: [address] : [birth year] UNIT #: [id number] AGE: [address]: Chari Duarte MD SEX: M ORDER DR: [id number] [facility] [address] [facility]. [place], [place] [address] [id number] I MR#: [id number] Acc #: [id number] NAME: MILLI ORTIZ : 1950 SEX: M STUDY DATE/TIME: 12/04/2016 6:49 UNIT: [facility] ROOM: [facility] STUDY DESCRIPTION: CR Chest Single View Portable Attending Physician: Chari Duarte M.D. Ordering Physician: Garett Albarran M.D. Primary Care Physician: Monica Lee Aprn MEDICAL IMAGING REPORT This report is preliminary unless electronic signature is present EXAM Portable chest. INDICATION Atrial fibrillation and shortness of air for 2 days. COMPARISON 12/03/2016 FINDINGS A portable view of the chest was obtained. Heart size and vascularity are normal and the lungs are clear. The central vascular congestion has its tip in the right atrium. The single lead pacemaker is stable. IMPRESSION No active disease. Dictated by... Scott Sorto M.D. THIS IS AN ELECTRONICALLY VERIFIED REPORT Scott Sorto M.D. at 12/04/2016 2:34 PM DESIRE/carlos a TD: 12/04/2016 13:29 JOB #: [id number] MEDICAL IMAGING REPORT Page 1 of 1 COPY
[2016-11-25 11:06] LABS: BASOPHIL# 0.2 X10e3 (0-0.3); BASOPHIL% 0.9 % (0-2.5); EOSINOPHIL# 3.2 X10e3 (0-0.7); EOSINOPHIL% 16.1 % (0.0-7.0); HEMATOCRIT 35.6 % (38.0-50.0); HEMOGLOBIN 11.2 gm/dL (13.0-16.0); LYMPHOCYTE# 0.7 X10e3 (1.0-3.5); LYMPHOCYTE% 3.8 % (17.0-45.0); MEAN CORPUSCULAR HEMOGLOBIN 26.8 PG (28-34); MEAN CORPUSCULAR HGB CONC 31.5 g/dL (30-36); MEAN PLATELET VOLUME 9.3 FL (6.5-11.5); MONOCYTE# 1.4 X10e3 (0-1.0); MONOCYTE% 7.2 % (3.0-12.0); NEUTROPHIL# 14.1 X10e3 (1.5-7.1); PLATELET COUNT 241 X10e3 (140-420); RED BLOOD COUNT 4.19 X10e (3.90-5.60); RED CELL DISTRIBUTION WIDTH 15.9 % (11.0-15.5); WHITE BLOOD COUNT 19.6 X10e3 (4.0-10.5)
[2016-11-25 11:07] LABS: DIFF IND YES
[2016-11-25 11:15] LABS: INR 1.4; PARTIAL THROMBOPLASTIN TIME 28.5 SECONDS (23.5-31.3); PROTHROMBIN TIME (PATIENT) 14.7 SECONDS (9.6-11.5)
[2016-11-25 11:31] LABS: ALBUMIN SERUM 3.3 g/dL (3.5-5.0); BILIRUBIN, DIRECT 0.4 mg/dL (0.0-0.2); BILIRUBIN,INDIRECT 0.6 mg/dL (0.0-0.9); BUN/CREATININE RATIO 17.69; CALCIUM SERUM 8.8 mg/dL (8.4-10.2); CREATININE SERUM 1.3 mg/dL (0.6-1.4); GLOM FILT RATE Estimated 66.9 mL/min (>60); POTASSIUM 3.9 mmol/L (3.5-5.1); PROTEIN TOTAL SERUM 7.1 g/dL (6.0-8.3)
[2016-11-25 11:54] LABS: ANISOCYTOSIS SL; PLATELET ESTIMATE NORMAL (NORMAL)
[2016-11-25] MEDS ORDERED: KLOR-CON PO (12:13)
[2016-11-25] MEDS ORDERED: CARVEDILOL25 MG PO (12:13)
[2016-11-25] MEDS ORDERED: ELIQUIS5 MG PO (12:14)
[2016-11-25] MEDS ORDERED: ASPIRIN81 MG PO (12:14)
[2016-11-25] MEDS ORDERED: PRINIVIL40 MG PO (12:14)
[2016-11-25] MEDS ORDERED: FUROSEMIDE40 MG PO (12:15)
[2016-11-25] MEDS ORDERED: AMLODIPINE BESY10 MG PO (12:15)
[2016-11-25] MEDS ORDERED: ENTRESTO 24 MG1 EACH PO (12:16)
[2016-11-25 13:52] LABS: URINE SOURCE CLEAN CATCH
[2016-11-25 14:04] LABS: URINE APPEARANCE CLEAR; URINE BLOOD TRACE (NEG); URINE COLOR DK YELLOW; URINE GLUCOSE NEG (NEG); URINE KETONE TRACE (NEG); URINE LEUKOCYTE ESTERASE 1+ (NEG); URINE NITRATE NEG (NEG); URINE PROTEIN 1+ (NEG); URINE SPECIFIC GRAVITY 1.022 (1.003-1.035)
[2016-11-25 14:08] LABS: URBCS1 AUWI 0-2 /[HPF] (0-2); URINE BACTERIA AUWI NEG (NEGATIVE); URINE SQUAMOUS EPITHELIAL CELL OCC /[HPF]
[2016-11-25 14:14] LABS: URINE BILIRUBIN NEG (NEG)
[2016-11-25 14:17] LABS: CK TOTAL 29 IU/L (36-174)
[2016-11-25 20:19] LABS: CK TOTAL 26 IU/L (36-174)
[2016-11-26 03:35] LABS: BASOPHIL# 0.2 X10e3 (0-0.3); BASOPHIL% 1.4 % (0-2.5); EOSINOPHIL# 2.7 X10e3 (0-0.7); EOSINOPHIL% 15.3 % (0.0-7.0); HEMATOCRIT 32.4 % (38.0-50.0); HEMOGLOBIN 10.5 gm/dL (13.0-16.0); LYMPHOCYTE# 1.2 X10e3 (1.0-3.5); LYMPHOCYTE% 6.6 % (17.0-45.0); MEAN CELL VOLUME 84.4 FL (83-96); MEAN CORPUSCULAR HEMOGLOBIN 27.3 PG (28-34); MEAN CORPUSCULAR HGB CONC 32.4 g/dL (30-36); MEAN PLATELET VOLUME 9.8 FL (6.5-11.5); MONOCYTE# 1.3 X10e3 (0-1.0); MONOCYTE% 7.5 % (3.0-12.0); NEUTROPHIL# 12.2 X10e3 (1.5-7.1); NEUTROPHIL% 69.2 % (40-75); PLATELET COUNT 207 X10e3 (140-420); RED BLOOD COUNT 3.83 X10e (3.90-5.60); RED CELL DISTRIBUTION WIDTH 15.3 % (11.0-15.5); WHITE BLOOD COUNT 17.6 X10e3 (4.0-10.5)
[2016-11-26 03:36] LABS: DIFF IND NO
[2016-11-26 03:46] LABS: INR 1.3; PARTIAL THROMBOPLASTIN TIME 52.5 SECONDS (23.5-31.3)
[2016-11-26 04:04] LABS: ALBUMIN SERUM 2.8 g/dL (3.5-5.0); BILIRUBIN,TOTAL 1.1 mg/dL (0.2-2.0); BUN/CREATININE RATIO 15.45; CALCIUM SERUM 8.1 mg/dL (8.4-10.2); CREATININE SERUM 1.1 mg/dL (0.6-1.4); GLOM FILT RATE Estimated 81.8 mL/min (>60); PROTEIN TOTAL SERUM 6.2 g/dL (6.0-8.3)
[2016-11-27 03:52] LABS: BASOPHIL# 0.2 X10e3 (0-0.3); BASOPHIL% 1.2 % (0-2.5); EOSINOPHIL% 16.5 % (0.0-7.0); HEMATOCRIT 31.6 % (38.0-50.0); LYMPHOCYTE# 1.2 X10e3 (1.0-3.5); LYMPHOCYTE% 6.5 % (17.0-45.0); MEAN CELL VOLUME 84.4 FL (83-96); MEAN CORPUSCULAR HEMOGLOBIN 26.6 PG (28-34); MEAN CORPUSCULAR HGB CONC 31.5 g/dL (30-36); MONOCYTE# 1.3 X10e3 (0-1.0); MONOCYTE% 7.4 % (3.0-12.0); NEUTROPHIL# 12.5 X10e3 (1.5-7.1); NEUTROPHIL% 68.4 % (40-75); PLATELET COUNT 211 X10e3 (140-420); RED BLOOD COUNT 3.75 X10e (3.90-5.60); RED CELL DISTRIBUTION WIDTH 15.6 % (11.0-15.5); WHITE BLOOD COUNT 18.3 X10e3 (4.0-10.5)
[2016-11-27 03:55] LABS: DIFF IND NO
[2016-11-27 04:14] LABS: CALCIUM SERUM 8.2 mg/dL (8.4-10.2); GLOM FILT RATE Estimated 91.8 mL/min (>60); POTASSIUM 3.8 mmol/L (3.5-5.1)
[2016-11-27 13:30] LABS: IRON SERUM 17 ug/dL (45-182); TOTAL IRON BINDING CAPACITY 200 ug/dL (252-460); TRANSFERRIN 143 mg/dL (180-329); TRANSFERRIN SATURATION 9 % (20-50)
[2016-11-27 13:46] LABS: FERRITIN 609 ng/mL (24-336)
[2016-11-28 09:11] LABS: BASOPHIL# 0.2 X10e3 (0-0.3); EOSINOPHIL% 15.4 % (0.0-7.0); HEMOGLOBIN 10.7 gm/dL (13.0-16.0); LYMPHOCYTE# 1.1 X10e3 (1.0-3.5); LYMPHOCYTE% 5.8 % (17.0-45.0); MEAN CELL VOLUME 85.3 FL (83-96); MEAN CORPUSCULAR HEMOGLOBIN 26.8 PG (28-34); MEAN CORPUSCULAR HGB CONC 31.4 g/dL (30-36); MEAN PLATELET VOLUME 10.8 FL (6.5-11.5); MONOCYTE# 1.5 X10e3 (0-1.0); MONOCYTE% 7.8 % (3.0-12.0); NEUTROPHIL# 13.5 X10e3 (1.5-7.1); PLATELET COUNT 212 X10e3 (140-420); RED BLOOD COUNT 3.98 X10e (3.90-5.60); RED CELL DISTRIBUTION WIDTH 15.9 % (11.0-15.5); WHITE BLOOD COUNT 19.3 X10e3 (4.0-10.5)
[2016-11-28 09:12] LABS: DIFF IND NO
[2016-11-29 02:29] LABS: BASOPHIL# 0.1 X10e3 (0-0.3); BASOPHIL% 0.3 % (0-2.5); DIFF IND YES; EOSINOPHIL% 13.5 % (0.0-7.0); HEMATOCRIT 33.3 % (38.0-50.0); HEMOGLOBIN 10.7 gm/dL (13.0-16.0); LYMPHOCYTE# 1.1 X10e3 (1.0-3.5); LYMPHOCYTE% 5.1 % (17.0-45.0); MEAN CELL VOLUME 84.6 FL (83-96); MEAN CORPUSCULAR HEMOGLOBIN 27.1 PG (28-34); MEAN PLATELET VOLUME 9.6 FL (6.5-11.5); MONOCYTE# 1.5 X10e3 (0-1.0); MONOCYTE% 6.9 % (3.0-12.0); NEUTROPHIL# 16.3 X10e3 (1.5-7.1); NEUTROPHIL% 74.2 % (40-75); PLATELET COUNT 220 X10e3 (140-420); RED BLOOD COUNT 3.94 X10e (3.90-5.60); RED CELL DISTRIBUTION WIDTH 16.1 % (11.0-15.5)
[2016-11-29 02:57] LABS: ANISOCYTOSIS SL; MICROCYTOSIS SL; PLATELET ESTIMATE NORMAL (NORMAL); SMUDGE CELLS 9 /100
[2016-11-29 08:05] LABS: INR 1.2; PARTIAL THROMBOPLASTIN TIME 33.1 SECONDS (23.5-31.3); PROTHROMBIN TIME (PATIENT) 13.2 SECONDS (9.6-11.5)
[2016-11-30 06:25] LABS: HEMATOCRIT 32.6 % (38.0-50.0); HEMOGLOBIN 10.4 gm/dL (13.0-16.0); MEAN CELL VOLUME 83.4 FL (83-96); MEAN CORPUSCULAR HEMOGLOBIN 26.5 PG (28-34); MEAN CORPUSCULAR HGB CONC 31.8 g/dL (30-36); MEAN PLATELET VOLUME 9.4 FL (6.5-11.5); RED BLOOD COUNT 3.91 X10e (3.90-5.60); WHITE BLOOD COUNT 21.8 X10e3 (4.0-10.5)
[2016-11-30 06:50] LABS: ALBUMIN SERUM 2.5 g/dL (3.5-5.0); BILIRUBIN,TOTAL 1.5 mg/dL (0.2-2.0); CALCIUM SERUM 8.3 mg/dL (8.4-10.2); CREATININE SERUM 1.1 mg/dL (0.6-1.4); GLOM FILT RATE Estimated 81.8 mL/min (>60); MAGNESIUM 1.9 mg/dL (1.6-3.0); POTASSIUM 4.2 mmol/L (3.5-5.1); PROTEIN TOTAL SERUM 5.7 g/dL (6.0-8.3)
[2016-12-01 06:56] LABS: HEMATOCRIT 31.5 % (38.0-50.0); HEMOGLOBIN 10.2 gm/dL (13.0-16.0); MEAN CELL VOLUME 83.5 FL (83-96); MEAN CORPUSCULAR HGB CONC 32.4 g/dL (30-36); MEAN PLATELET VOLUME 9.1 FL (6.5-11.5); RED BLOOD COUNT 3.78 X10e (3.90-5.60); RED CELL DISTRIBUTION WIDTH 15.8 % (11.0-15.5)
[2016-12-01 07:28] LABS: ALBUMIN SERUM 2.3 g/dL (3.5-5.0); BILIRUBIN,TOTAL 1.5 mg/dL (0.2-2.0); BUN/CREATININE RATIO 16.42; CREATININE SERUM 1.4 mg/dL (0.6-1.4); GLOM FILT RATE Estimated 61.1 mL/min (>60); MAGNESIUM 2.1 mg/dL (1.6-3.0); POTASSIUM 4.3 mmol/L (3.5-5.1); PROTEIN TOTAL SERUM 5.7 g/dL (6.0-8.3)
[2016-12-02 06:04] LABS: HEMATOCRIT 37.2 % (38.0-50.0); HEMOGLOBIN 11.8 gm/dL (13.0-16.0); MEAN CORPUSCULAR HGB CONC 31.7 g/dL (30-36); MEAN PLATELET VOLUME 8.9 FL (6.5-11.5); RED BLOOD COUNT 4.38 X10e (3.90-5.60); RED CELL DISTRIBUTION WIDTH 16.6 % (11.0-15.5); WHITE BLOOD COUNT 26.2 X10e3 (4.0-10.5)
[2016-12-02 10:39] LABS: ALBUMIN SERUM 2.1 g/dL (3.5-5.0); BILIRUBIN,TOTAL 1.1 mg/dL (0.2-2.0); BUN/CREATININE RATIO 15.83; CALCIUM SERUM 7.2 mg/dL (8.4-10.2); CREATININE SERUM 2.4 mg/dL (0.6-1.4); GLOM FILT RATE Estimated 31.9 mL/min (>60); PROTEIN TOTAL SERUM 5.6 g/dL (6.0-8.3)
[2016-12-02 10:47] LABS: POTASSIUM 6.2 mmol/L (3.5-5.1)
[2016-12-02 17:28] LABS: BUN/CREATININE RATIO 15.17; CALCIUM SERUM 7.6 mg/dL (8.4-10.2); CREATININE SERUM 2.9 mg/dL (0.6-1.4); GLOM FILT RATE Estimated 25.3 mL/min (>60)
[2016-12-02 17:42] LABS: POTASSIUM 6.2 mmol/L (3.5-5.1)
[2016-12-02 18:28] LABS: URINE APPEARANCE CLEAR; URINE BLOOD 4+ (NEG); URINE COLOR YELLOW; URINE GLUCOSE NORM (NORM); URINE KETONE 1+ (NEG); URINE LEUKOCYTE ESTERASE 2+ (NEG); URINE NITRATE POS (NEG); URINE PROTEIN 1+ (NEG); URINE SPECIFIC GRAVITY 1.025 (1.003-1.035); URINE UROBILINOGEN NORM (NORM)
[2016-12-02 18:29] LABS: URINE BACTERIA AUWI 3+ (NEGATIVE); URINE BILIRUBIN NEG (NEG)
[2016-12-02 18:40] LABS: CREATININE,RANDOM URINE 252 mg/dL; SODIUM URINE RANDOM <10 mmol/L; TOTAL PROTEIN,RANDOM URINE 62 mg/dl (<10)
[2016-12-02 21:11] LABS: BUN/CREATININE RATIO 14.84; CALCIUM SERUM 7.3 mg/dL (8.4-10.2); CREATININE SERUM 3.3 mg/dL (0.6-1.4); GLOM FILT RATE Estimated 21.7 mL/min (>60)
[2016-12-02 21:12] LABS: POTASSIUM 6.3 mmol/L (3.5-5.1)
[2016-12-03 04:34] LABS: BASOPHIL# 0.2 X10e3 (0-0.3); BASOPHIL% 0.6 % (0-2.5); EOSINOPHIL# 2.4 X10e3 (0-0.7); EOSINOPHIL% 10.1 % (0.0-7.0); HEMATOCRIT 31.1 % (38.0-50.0); HEMOGLOBIN 9.8 gm/dL (13.0-16.0); LYMPHOCYTE# 0.7 X10e3 (1.0-3.5); LYMPHOCYTE% 2.9 % (17.0-45.0); MEAN CORPUSCULAR HEMOGLOBIN 26.8 PG (28-34); MEAN CORPUSCULAR HGB CONC 31.6 g/dL (30-36); MEAN PLATELET VOLUME 8.5 FL (6.5-11.5); MONOCYTE# 0.5 X10e3 (0-1.0); MONOCYTE% 2.2 % (3.0-12.0); NEUTROPHIL# 19.8 X10e3 (1.5-7.1); NEUTROPHIL% 84.2 % (40-75); PLATELET COUNT 239 X10e3 (140-420); RED BLOOD COUNT 3.66 X10e (3.90-5.60); RED CELL DISTRIBUTION WIDTH 16.6 % (11.0-15.5); WHITE BLOOD COUNT 23.5 X10e3 (4.0-10.5)
[2016-12-03 04:36] LABS: DIFF IND YES
[2016-12-03 04:52] LABS: PLATELET ESTIMATE NORMAL (NORMAL)
[2016-12-03 04:53] LABS: ANISOCYTOSIS SL; OVALOCYTES PRESENT
[2016-12-03 04:59] LABS: ALBUMIN SERUM 1.9 g/dL (3.5-5.0); BILIRUBIN,TOTAL 1.2 mg/dL (0.2-2.0); BUN/CREATININE RATIO 14.72; CREATININE SERUM 3.6 mg/dL (0.6-1.4); DIGOXIN (LANOXIN) 2.5 ng/ml (1.0-2.0); GLOM FILT RATE Estimated 19.5 mL/min (>60); MAGNESIUM 2.2 mg/dL (1.6-3.0); PHOSPHOROUS 6.9 mg/dL (2.5-4.6); PROTEIN TOTAL SERUM 5.3 g/dL (6.0-8.3)
[2016-12-03 06:59] LABS: ARTERIAL BLD GAS O2 SATURATION 87.2 % (90.0-100.0); ARTERIAL BLOOD GAS CARBOXY HB 10.7 %sat (0.0-9.0); ARTERIAL BLOOD GAS HCO3 24.4 mmol/L; ARTERIAL BLOOD GAS MET HB 0.7 %sat (0.0-2.0); ARTERIAL BLOOD GAS PCO2 40.9 mmHg (35.0-45.0); ARTERIAL BLOOD GAS PO2 54.1 mmHg (80.0-100); ARTERIAL BLOOD GAS pH 7.384 (7.350-7.450)
[2016-12-03 07:00] LABS: ARTERIAL BLOOD GAS ALLEN TEST NORMAL; ARTERIAL BLOOD GAS ART SITE RIGHT RADIAL; ARTERIAL BLOOD GAS DELIVERY NON REBREATHER MASK; ARTERIAL DRAW? YES
[2016-12-03 07:33] LABS: %MB 0.9 % (0.0-4.0); MB 2.1 ng/ml
[2016-12-03 11:23] LABS: HEMATOCRIT 32.2 % (38.0-50.0); HEMOGLOBIN 10.2 gm/dL (13.0-16.0); MEAN CELL VOLUME 84.9 FL (83-96); MEAN CORPUSCULAR HEMOGLOBIN 26.8 PG (28-34); MEAN CORPUSCULAR HGB CONC 31.6 g/dL (30-36); MEAN PLATELET VOLUME 8.3 FL (6.5-11.5); RED BLOOD COUNT 3.8 X10e (3.90-5.60); RED CELL DISTRIBUTION WIDTH 16.8 % (11.0-15.5); WHITE BLOOD COUNT 26.6 X10e3 (4.0-10.5)
[2016-12-03 12:14] LABS: BUN/CREATININE RATIO 12.28; CALCIUM SERUM 7.5 mg/dL (8.4-10.2); CREATININE SERUM 3.5 mg/dL (0.6-1.4); GLOM FILT RATE Estimated 20.2 mL/min (>60)
[2016-12-03 12:16] LABS: POTASSIUM 5.9 mmol/L (3.5-5.1)
[2016-12-04 04:42] LABS: BASOPHIL# 0.2 X10e3 (0-0.3); BASOPHIL% 0.8 % (0-2.5); EOSINOPHIL# 2.8 X10e3 (0-0.7); EOSINOPHIL% 11.1 % (0.0-7.0); HEMATOCRIT 29.7 % (38.0-50.0); HEMOGLOBIN 9.5 gm/dL (13.0-16.0); LYMPHOCYTE# 0.8 X10e3 (1.0-3.5); LYMPHOCYTE% 3.2 % (17.0-45.0); MEAN CORPUSCULAR HEMOGLOBIN 26.7 PG (28-34); MEAN CORPUSCULAR HGB CONC 31.8 g/dL (30-36); MONOCYTE# 1.1 X10e3 (0-1.0); MONOCYTE% 4.3 % (3.0-12.0); NEUTROPHIL# 20.3 X10e3 (1.5-7.1); NEUTROPHIL% 80.6 % (40-75); PLATELET COUNT 146 X10e3 (140-420); RED BLOOD COUNT 3.54 X10e (3.90-5.60); RED CELL DISTRIBUTION WIDTH 16.9 % (11.0-15.5); WHITE BLOOD COUNT 25.2 X10e3 (4.0-10.5)
[2016-12-04 04:43] LABS: DIFF IND NO
[2016-12-04 05:01] LABS: ALBUMIN SERUM 2.4 g/dL (3.5-5.0); BILIRUBIN,TOTAL 1.6 mg/dL (0.2-2.0); BUN/CREATININE RATIO 11.47; CALCIUM SERUM 7.6 mg/dL (8.4-10.2); CREATININE SERUM 3.4 mg/dL (0.6-1.4); GLOM FILT RATE Estimated 20.9 mL/min (>60); POTASSIUM 4.6 mmol/L (3.5-5.1); PROTEIN TOTAL SERUM 6.1 g/dL (6.0-8.3)
[2016-12-04 19:04] LABS: BUN/CREATININE RATIO 13.07; CALCIUM SERUM 7.4 mg/dL (8.4-10.2); CREATININE SERUM 3.9 mg/dL (0.6-1.4); GLOM FILT RATE Estimated 17.7 mL/min (>60); POTASSIUM 4.8 mmol/L (3.5-5.1)
[2016-12-05 02:36] LABS: BASOPHIL# 0.2 X10e3 (0-0.3); BASOPHIL% 0.9 % (0-2.5); EOSINOPHIL# 3.1 X10e3 (0-0.7); EOSINOPHIL% 13.8 % (0.0-7.0); HEMATOCRIT 27.1 % (38.0-50.0); HEMOGLOBIN 8.7 gm/dL (13.0-16.0); LYMPHOCYTE# 1.1 X10e3 (1.0-3.5); LYMPHOCYTE% 4.7 % (17.0-45.0); MEAN CELL VOLUME 84.6 FL (83-96); MEAN CORPUSCULAR HGB CONC 31.9 g/dL (30-36); MEAN PLATELET VOLUME 8.9 FL (6.5-11.5); MONOCYTE# 1.5 X10e3 (0-1.0); MONOCYTE% 6.4 % (3.0-12.0); NEUTROPHIL# 16.7 X10e3 (1.5-7.1); NEUTROPHIL% 74.2 % (40-75); PLATELET COUNT 151 X10e3 (140-420); RED CELL DISTRIBUTION WIDTH 16.9 % (11.0-15.5); WHITE BLOOD COUNT 22.5 X10e3 (4.0-10.5)
[2016-12-05 02:37] LABS: DIFF IND NO
[2016-12-05 02:44] LABS: ALBUMIN SERUM 2.6 g/dL (3.5-5.0); BILIRUBIN,TOTAL 1.2 mg/dL (0.2-2.0); BUN/CREATININE RATIO 15.4; CALCIUM SERUM 7.5 mg/dL (8.4-10.2); CREATININE SERUM 3.7 mg/dL (0.6-1.4); GLOM FILT RATE Estimated 18.9 mL/min (>60); MAGNESIUM 2.4 mg/dL (1.6-3.0); PHOSPHOROUS 6.3 mg/dL (2.5-4.6); POTASSIUM 4.9 mmol/L (3.5-5.1)
[2016-12-06 03:34] LABS: HEMOGLOBIN 8.7 gm/dL (13.0-16.0); MEAN CELL VOLUME 83.4 FL (83-96); MEAN CORPUSCULAR HEMOGLOBIN 26.7 PG (28-34); RED BLOOD COUNT 3.24 X10e (3.90-5.60); RED CELL DISTRIBUTION WIDTH 16.7 % (11.0-15.5); WHITE BLOOD COUNT 22.2 X10e3 (4.0-10.5)
[2016-12-06 04:01] LABS: ALBUMIN SERUM 2.1 g/dL (3.5-5.0); BILIRUBIN,TOTAL 1.9 mg/dL (0.2-2.0); BUN/CREATININE RATIO 19.11; CALCIUM SERUM 7.2 mg/dL (8.4-10.2); CREATININE SERUM 3.4 mg/dL (0.6-1.4); GLOM FILT RATE Estimated 20.9 mL/min (>60); PROTEIN TOTAL SERUM 5.4 g/dL (6.0-8.3)
[2016-12-06 04:38] LABS: ARTERIAL BLOOD GAS pH 7.409 (7.350-7.450)
[2016-12-06 04:39] LABS: ARTERIAL BLD GAS O2 SATURATION 98.8 % (90.0-100.0); ARTERIAL BLOOD GAS ALLEN TEST NORMAL; ARTERIAL BLOOD GAS ART SITE LEFT RADIAL; ARTERIAL BLOOD GAS CARBOXY HB 0.8 %sat (0.0-9.0); ARTERIAL BLOOD GAS HCO3 27.7 mmol/L; ARTERIAL BLOOD GAS MET HB 0.8 %sat (0.0-2.0); ARTERIAL BLOOD GAS PCO2 43.9 mmHg (35.0-45.0); ARTERIAL DRAW? YES
[2016-12-06 09:13] LABS: MAGNESIUM 2.4 mg/dL (1.6-3.0)
[2016-12-07 04:05] LABS: ARTERIAL BLD GAS O2 SATURATION 96.6 % (90.0-100.0); ARTERIAL BLOOD GAS ALLEN TEST NORMAL; ARTERIAL BLOOD GAS ART SITE RIGHT RADIAL; ARTERIAL BLOOD GAS CARBOXY HB 0.9 %sat (0.0-9.0); ARTERIAL BLOOD GAS DELIVERY NASAL CANNULA; ARTERIAL BLOOD GAS HCO3 26.9 mmol/L; ARTERIAL BLOOD GAS MET HB 0.7 %sat (0.0-2.0); ARTERIAL BLOOD GAS PCO2 41.1 mmHg (35.0-45.0); ARTERIAL BLOOD GAS PO2 82.1 mmHg (80.0-100); ARTERIAL BLOOD GAS pH 7.423 (7.350-7.450); ARTERIAL DRAW? YES
[2016-12-07 06:04] LABS: BASOPHIL# 0.1 X10e3 (0-0.3); BASOPHIL% 0.2 % (0-2.5); EOSINOPHIL# 3.3 X10e3 (0-0.7); EOSINOPHIL% 13.8 % (0.0-7.0); HEMATOCRIT 27.7 % (38.0-50.0); MEAN CELL VOLUME 82.7 FL (83-96); MEAN CORPUSCULAR HEMOGLOBIN 26.8 PG (28-34); MEAN CORPUSCULAR HGB CONC 32.4 g/dL (30-36); MEAN PLATELET VOLUME 9.1 FL (6.5-11.5); MONOCYTE# 0.8 X10e3 (0-1.0); MONOCYTE% 3.5 % (3.0-12.0); NEUTROPHIL% 78.5 % (40-75); PLATELET COUNT 186 X10e3 (140-420); RED BLOOD COUNT 3.35 X10e (3.90-5.60); RED CELL DISTRIBUTION WIDTH 16.7 % (11.0-15.5); WHITE BLOOD COUNT 24.2 X10e3 (4.0-10.5)
[2016-12-07 06:08] LABS: DIFF IND YES
[2016-12-07 06:32] LABS: BILIRUBIN,TOTAL 2.3 mg/dL (0.2-2.0); BUN/CREATININE RATIO 24.28; CALCIUM SERUM 7.3 mg/dL (8.4-10.2); CREATININE SERUM 2.8 mg/dL (0.6-1.4); GLOM FILT RATE Estimated 26.4 mL/min (>60); MAGNESIUM 2.4 mg/dL (1.6-3.0); PHOSPHOROUS 4.7 mg/dL (2.5-4.6); POTASSIUM 3.9 mmol/L (3.5-5.1); PROTEIN TOTAL SERUM 5.7 g/dL (6.0-8.3)
[2016-12-07 07:20] LABS: PLATELET ESTIMATE NORMAL (NORMAL)
[2016-12-07 07:21] LABS: ANISOCYTOSIS SL; TARGET CELLS SL
[2016-12-07 07:22] LABS: HYPOCHROMIA SL
[2016-12-08 05:47] LABS: BASOPHIL# 0.1 X10e3 (0-0.3); BASOPHIL% 0.5 % (0-2.5); EOSINOPHIL# 2.8 X10e3 (0-0.7); EOSINOPHIL% 11.6 % (0.0-7.0); HEMATOCRIT 28.1 % (38.0-50.0); HEMOGLOBIN 8.9 gm/dL (13.0-16.0); LYMPHOCYTE# 1.1 X10e3 (1.0-3.5); LYMPHOCYTE% 4.7 % (17.0-45.0); MEAN CELL VOLUME 83.5 FL (83-96); MEAN CORPUSCULAR HEMOGLOBIN 26.4 PG (28-34); MEAN CORPUSCULAR HGB CONC 31.6 g/dL (30-36); MEAN PLATELET VOLUME 10.2 FL (6.5-11.5); NEUTROPHIL# 19.4 X10e3 (1.5-7.1); NEUTROPHIL% 79.2 % (40-75); PLATELET COUNT 210 X10e3 (140-420); RED BLOOD COUNT 3.36 X10e (3.90-5.60); RED CELL DISTRIBUTION WIDTH 16.7 % (11.0-15.5); WHITE BLOOD COUNT 24.5 X10e3 (4.0-10.5)
[2016-12-08 05:53] LABS: DIFF IND NO
[2016-12-08 06:19] LABS: ALBUMIN SERUM 2.1 g/dL (3.5-5.0); BILIRUBIN,TOTAL 1.9 mg/dL (0.2-2.0); BUN/CREATININE RATIO 27.77; CALCIUM SERUM 7.8 mg/dL (8.4-10.2); CREATININE SERUM 2.7 mg/dL (0.6-1.4); GLOM FILT RATE Estimated 27.6 mL/min (>60); POTASSIUM 3.8 mmol/L (3.5-5.1); PROTEIN TOTAL SERUM 6.1 g/dL (6.0-8.3)
[2016-12-09 05:53] LABS: EOSINOPHIL# 3.1 X10e3 (0-0.7); EOSINOPHIL% 13.1 % (0.0-7.0); HEMATOCRIT 26.2 % (38.0-50.0); HEMOGLOBIN 8.4 gm/dL (13.0-16.0); LYMPHOCYTE# 1.1 X10e3 (1.0-3.5); LYMPHOCYTE% 4.7 % (17.0-45.0); MEAN CELL VOLUME 82.9 FL (83-96); MEAN CORPUSCULAR HEMOGLOBIN 26.5 PG (28-34); MEAN CORPUSCULAR HGB CONC 31.9 g/dL (30-36); MEAN PLATELET VOLUME 9.5 FL (6.5-11.5); MONOCYTE# 1.5 X10e3 (0-1.0); MONOCYTE% 6.4 % (3.0-12.0); NEUTROPHIL% 75.8 % (40-75); PLATELET COUNT 229 X10e3 (140-420); RED BLOOD COUNT 3.16 X10e (3.90-5.60); RED CELL DISTRIBUTION WIDTH 16.5 % (11.0-15.5); WHITE BLOOD COUNT 23.8 X10e3 (4.0-10.5)
[2016-12-09 05:54] LABS: DIFF IND NO
[2016-12-09 06:38] LABS: BUN/CREATININE RATIO 34.34; CALCIUM SERUM 7.6 mg/dL (8.4-10.2); CREATININE SERUM 2.3 mg/dL (0.6-1.4); GLOM FILT RATE Estimated 33.5 mL/min (>60); MAGNESIUM 2.2 mg/dL (1.6-3.0); POTASSIUM 3.8 mmol/L (3.5-5.1)
[2016-12-10 06:32] LABS: HEMATOCRIT 25.8 % (38.0-50.0); HEMOGLOBIN 8.2 gm/dL (13.0-16.0); MEAN CELL VOLUME 82.9 FL (83-96); MEAN CORPUSCULAR HEMOGLOBIN 26.4 PG (28-34); MEAN CORPUSCULAR HGB CONC 31.9 g/dL (30-36); MEAN PLATELET VOLUME 9.3 FL (6.5-11.5); RED BLOOD COUNT 3.11 X10e (3.90-5.60); RED CELL DISTRIBUTION WIDTH 16.7 % (11.0-15.5)
[2016-12-10 06:56] LABS: BUN/CREATININE RATIO 30.71; CALCIUM SERUM 7.7 mg/dL (8.4-10.2); CREATININE SERUM 2.8 mg/dL (0.6-1.4); GLOM FILT RATE Estimated 26.4 mL/min (>60); POTASSIUM 3.8 mmol/L (3.5-5.1)
[2016-12-11 05:21] LABS: HEMATOCRIT 25.4 % (38.0-50.0); HEMOGLOBIN 8.2 gm/dL (13.0-16.0); MEAN CORPUSCULAR HEMOGLOBIN 26.4 PG (28-34); MEAN CORPUSCULAR HGB CONC 32.2 g/dL (30-36); MEAN PLATELET VOLUME 9.5 FL (6.5-11.5); RED BLOOD COUNT 3.09 X10e (3.90-5.60); RED CELL DISTRIBUTION WIDTH 16.4 % (11.0-15.5); WHITE BLOOD COUNT 25.2 X10e3 (4.0-10.5)
[2016-12-11 05:55] LABS: BUN/CREATININE RATIO 29.37; CALCIUM SERUM 7.6 mg/dL (8.4-10.2); CREATININE SERUM 3.2 mg/dL (0.6-1.4); GLOM FILT RATE Estimated 22.5 mL/min (>60); MAGNESIUM 2.2 mg/dL (1.6-3.0)
[2016-12-12 07:08] LABS: BASOPHIL# 0.2 X10e3 (0-0.3); BASOPHIL% 0.7 % (0-2.5); EOSINOPHIL# 2.6 X10e3 (0-0.7); HEMATOCRIT 26.8 % (38.0-50.0); HEMOGLOBIN 8.6 gm/dL (13.0-16.0); MEAN CELL VOLUME 81.4 FL (83-96); MEAN CORPUSCULAR HEMOGLOBIN 26.1 PG (28-34); MEAN PLATELET VOLUME 9.2 FL (6.5-11.5); MONOCYTE# 1.8 X10e3 (0-1.0); NEUTROPHIL# 20.3 X10e3 (1.5-7.1); NEUTROPHIL% 78.3 % (40-75); PLATELET COUNT 275 X10e3 (140-420); RED BLOOD COUNT 3.29 X10e (3.90-5.60); RED CELL DISTRIBUTION WIDTH 16.7 % (11.0-15.5)
[2016-12-12 07:11] LABS: DIFF IND YES
[2016-12-12 07:13] LABS: BUN/CREATININE RATIO 32.25; CALCIUM SERUM 7.7 mg/dL (8.4-10.2); CREATININE SERUM 3.1 mg/dL (0.6-1.4); GLOM FILT RATE Estimated 23.4 mL/min (>60)
[2016-12-12 09:30] LABS: PLATELET ESTIMATE NORMAL (NORMAL)
[2016-12-12 09:31] LABS: ANISOCYTOSIS SL
[2016-12-12 09:32] LABS: HYPOCHROMIA SL
[2016-12-12 16:44] LABS: ARTERIAL BLD GAS O2 SATURATION 82.4 % (90.0-100.0); ARTERIAL BLOOD GAS CARBOXY HB 1.2 %sat (0.0-9.0); ARTERIAL BLOOD GAS HCO3 21.5 mmol/L; ARTERIAL BLOOD GAS PCO2 34.2 mmHg (35.0-45.0); ARTERIAL BLOOD GAS PO2 47.4 mmHg (80.0-100); ARTERIAL BLOOD GAS pH 7.407 (7.350-7.450)
[2016-12-12 16:45] LABS: ARTERIAL BLOOD GAS ART SITE RIGHT BRACHIAL; ARTERIAL BLOOD GAS DELIVERY NASAL CANNULA; ARTERIAL BLOOD GAS MET HB 0.3 %sat (0.0-2.0); ARTERIAL DRAW? YES
[2016-12-13 05:22] LABS: HEMATOCRIT 23.3 % (38.0-50.0); HEMOGLOBIN 7.7 gm/dL (13.0-16.0); MEAN CELL VOLUME 80.8 FL (83-96); MEAN CORPUSCULAR HEMOGLOBIN 26.7 PG (28-34); MEAN PLATELET VOLUME 8.7 FL (6.5-11.5); RED BLOOD COUNT 2.88 X10e (3.90-5.60); RED CELL DISTRIBUTION WIDTH 16.9 % (11.0-15.5); WHITE BLOOD COUNT 28.5 X10e3 (4.0-10.5)
[2016-12-13 05:52] LABS: ALBUMIN SERUM 1.6 g/dL (3.5-5.0); BILIRUBIN,TOTAL 3.6 mg/dL (0.2-2.0); CALCIUM SERUM 7.6 mg/dL (8.4-10.2); CREATININE SERUM 3.6 mg/dL (0.6-1.4); GLOM FILT RATE Estimated 19.5 mL/min (>60); MAGNESIUM 2.2 mg/dL (1.6-3.0); POTASSIUM 4.7 mmol/L (3.5-5.1); PROTEIN TOTAL SERUM 5.3 g/dL (6.0-8.3)
[2016-12-13 06:15] LABS: BUN/CREATININE RATIO 28.33
[2016-12-13 16:45] LABS: ARTERIAL BLOOD GAS HCO3 24.3 mmol/L; ARTERIAL BLOOD GAS PCO2 35.6 mmHg (35.0-45.0); ARTERIAL BLOOD GAS PO2 76.4 mmHg (80.0-100); ARTERIAL BLOOD GAS pH 7.443 (7.350-7.450)
[2016-12-13 16:46] LABS: ARTERIAL BLOOD GAS ALLEN TEST N; ARTERIAL BLOOD GAS ART SITE RIGHT RADIAL; ARTERIAL BLOOD GAS CARBOXY HB 0.9 %sat (0.0-9.0); ARTERIAL BLOOD GAS DELIVERY OXYMIZER; ARTERIAL BLOOD GAS MET HB 0.6 %sat (0.0-2.0); ARTERIAL DRAW? YES
[2016-12-14 06:33] LABS: HEMATOCRIT 22.2 % (38.0-50.0); HEMOGLOBIN 7.2 gm/dL (13.0-16.0); MEAN CELL VOLUME 81.1 FL (83-96); MEAN CORPUSCULAR HEMOGLOBIN 26.4 PG (28-34); MEAN CORPUSCULAR HGB CONC 32.5 g/dL (30-36); MEAN PLATELET VOLUME 8.7 FL (6.5-11.5); RED BLOOD COUNT 2.74 X10e (3.90-5.60); RED CELL DISTRIBUTION WIDTH 16.8 % (11.0-15.5); WHITE BLOOD COUNT 25.2 X10e3 (4.0-10.5)
[2016-12-14 07:33] LABS: ALBUMIN SERUM 1.6 g/dL (3.5-5.0); BILIRUBIN,TOTAL 3.9 mg/dL (0.2-2.0); CALCIUM SERUM 7.6 mg/dL (8.4-10.2); CREATININE SERUM 3.4 mg/dL (0.6-1.4); GLOM FILT RATE Estimated 20.9 mL/min (>60); POTASSIUM 4.7 mmol/L (3.5-5.1); PROTEIN TOTAL SERUM 5.7 g/dL (6.0-8.3)
[2016-12-14 07:37] LABS: BUN/CREATININE RATIO 32.64
== END 2016-12-14 23:49 | DRG 329 ==
LOC: CED 10:03 → C5B 12:25 → CEDOF 12:25 → CED 12:59 → CEDOF 12:59 → C4B 21:13 → C5B 11-29 10:12 → CICCU2 12-02 16:20 → C3A PCU 12-06 16:37
PROVIDERS: Emergency Medicine; Family Medicine; Internal Medicine; Internal Medicine Hematology; Internal Medicine Nephrology; Radiology Diagnostic Radiology; Surgery
PROC: B24BYZZ Ultrasonography of Heart with Aorta using Other Contrast (ICD-10-PCS; 2016-11-25)
PROC: 0FB03ZX Excision of Liver, Percutaneous Approach, Diagnostic (ICD-10-PCS; 2016-11-29)
PROC: 0DJD8ZZ Inspection of Lower Intestinal Tract, Via Natural or Artificial Opening Endoscopic (ICD-10-PCS; 2016-11-30)
PROC: B54MZZA Ultrasonography of Right Upper Extremity Veins, Guidance (ICD-10-PCS; 2016-11-30)
PROC: 05HD33Z Insertion of Infusion Device into Right Cephalic Vein, Percutaneous Approach (ICD-10-PCS; 2016-11-30 10:30)
PROC: 0DTG0ZZ Resection of Left Large Intestine, Open Approach (ICD-10-PCS; principal; 2016-12-01 15:30)
PROC: 05HM33Z Insertion of Infusion Device into Right Internal Jugular Vein, Percutaneous Approach (ICD-10-PCS; 2016-12-02)
PROC: B543ZZA Ultrasonography of Right Jugular Veins, Guidance (ICD-10-PCS; 2016-12-02)
PROC: 30233J1 Transfusion of Nonautologous Serum Albumin into Peripheral Vein, Percutaneous Approach (ICD-10-PCS; 2016-12-03)
PROC: 5A1D60Z (ICD-10-PCS; 2016-12-03)
PROC: 30233J1 Transfusion of Nonautologous Serum Albumin into Peripheral Vein, Percutaneous Approach (ICD-10-PCS; 2016-12-04)
DX: C18.6 Malignant neoplasm of descending colon (principal); J96.01 Acute respiratory failure with hypoxia; N17.9 Acute kidney failure, unspecified; I13.0 Hypertensive heart and chronic kidney disease with heart failure and stage 1 through stage 4 chronic kidney disease, or unspecified chronic kidney disease; C78.00 Secondary malignant neoplasm of unspecified lung; I82.622 Acute embolism and thrombosis of deep veins of left upper extremity; I50.22 Chronic systolic (congestive) heart failure; I42.8 Other cardiomyopathies; R18.8 Other ascites; C78.7 Secondary malignant neoplasm of liver and intrahepatic bile duct; C79.89 Secondary malignant neoplasm of other specified sites; N39.0 Urinary tract infection, site not specified; D72.829 Elevated white blood cell count, unspecified; I48.0 Paroxysmal atrial fibrillation; D64.9 Anemia, unspecified; N40.0 Benign prostatic hyperplasia without lower urinary tract symptoms; I08.1 Rheumatic disorders of both mitral and tricuspid valves; Z79.01 Long term (current) use of anticoagulants; Z95.810 Presence of automatic (implantable) cardiac defibrillator; E03.9 Hypothyroidism, unspecified; N18.9 Chronic kidney disease, unspecified; Z79.82 Long term (current) use of aspirin; I48.2 Chronic atrial fibrillation; F10.10 Alcohol abuse, uncomplicated; R74.0 Nonspecific elevation of levels of transaminase and lactic acid dehydrogenase [LDH]; E87.5 Hyperkalemia; Z51.5 Encounter for palliative care; Z66 Do not resuscitate
CPT/HCPCS: 36415; 36600; 71010; 71020; 71260; 74177; 76705; 76942; 80048; 80053; 80076; 80162; 81003; 82105; 82308; 82378; 82550; 82553; 82570; 82607; 82728; 82803; 82947; 83540; 83550; 83735; 83880; 84100; 84156; 84300; 84443; 84484; 85025; 85027; 85379; 85610; 85730; 86301; 86850; 86900; 86901; 86923; 87040; 87086; 87340; 88307; 88309; 88342; 93005; 93306; 93971; 94640; 94660; 94760; 97110; 97116; 97163; 97167; 97530; 97535; 99285; C1750; C9113; G8978-GP; G8979-GP; J0610; J0692; J1100; J1160; J1644; J1650; J1940; J2250; J2270; J2405; J2550; J2710; J2916; J3010; P9047; Q9967